=== PATIENT | male | born 1980 | race Hispanic/Latino ===

== ENCOUNTER → 2017-07-12 | Outpatient (CLI) | payer OTHER ==
[2017-07-12 10:18] LABS: ALBUMIN 3.4 GM/DL (3.2-5.2); ANION GAP 7 MEQ/L (8-16); BLOOD UREA NITROGEN 14 MG/DL (7-18); CALCIUM LEVEL 8.5 MG/DL (8.5-10.1); CARBON DIOXIDE LEVEL 28 MEQ/L (21-32); CHLORIDE LEVEL 102 MEQ/L (98-107); CREATININE FOR GFR 0.72 MG/DL (0.70-1.30); GLOMERULAR FILTRATION RATE > 60.0 (>60); GLUCOSE, FASTING 267 MG/DL (70-105); PHOSPHORUS LEVEL 4.4 MG/DL (2.5-4.9); POTASSIUM SERUM 4.7 MEQ/L (3.5-5.1); SODIUM LEVEL 137 MEQ/L (136-145)
== END ==
LOC: M LAB 08:50
PROVIDERS: ATTEND Internal Medicine Cardiovascular Disease
DX: I25.5 Ischemic cardiomyopathy (principal)

== ENCOUNTER 2017-10-01 17:07 | Emergency (ER) | payer OTHER ==
[2017-10-01] MEDS: METHOCARBAMOL 500 MG TAB PO (19:57)
[2017-10-01] MEDS ORDERED: IBUPROFEN 800 MG TAB PO (20:00)
== END 2017-10-01 19:59 | disposition home or self-care (01) ==
LOC: M ED 17:07
DX: S56.911A Strain of unspecified muscles, fascia and tendons at forearm level, right arm, initial encounter (principal); X58.XXXA Exposure to other specified factors, initial encounter; Y92.89 Other specified places as the place of occurrence of the external cause; I25.10 Atherosclerotic heart disease of native coronary artery without angina pectoris; I25.2 Old myocardial infarction; E11.9 Type 2 diabetes mellitus without complications; Z95.1 Presence of aortocoronary bypass graft; Z95.5 Presence of coronary angioplasty implant and graft; Z79.899 Other long term (current) drug therapy; Z79.02 Long term (current) use of antithrombotics/antiplatelets; Z79.82 Long term (current) use of aspirin; Z79.84 Long term (current) use of oral hypoglycemic drugs
CPT/HCPCS: 99282

== ENCOUNTER → 2018-01-26 | Outpatient (REF) | payer OTHER ==
[2018-01-26 12:52] LABS: CREATININE, URINE 56.4 MG/DL; MALB URINE SIEMENS 13.7 MG/L; MAU/CREAT RATIO 24.2 MCG/MG (0.0-30.0)
[2018-01-26 12:55] LABS: ALBUMIN 3.6 GM/DL (3.2-5.2); ALKALINE PHOSPHATASE 97 U/L (45-117); ALT/SGPT 39 U/L (12-78); ANION GAP 6 MEQ/L (8-16); AST/SGOT 13 U/L (7-37); BILIRUBIN,TOTAL 0.4 MG/DL (0.2-1.0); BLOOD UREA NITROGEN 16 MG/DL (7-18); CALCIUM LEVEL 8.7 MG/DL (8.5-10.1); CARBON DIOXIDE LEVEL 29 MEQ/L (21-32); CHLORIDE LEVEL 102 MEQ/L (98-107); CHOLESTEROL LEVEL 109 MG/DL (<200); CHOLESTEROL RISK RATIO 3.303 (<5); CREATININE FOR GFR 0.97 MG/DL (0.70-1.30); GLOMERULAR FILTRATION RATE > 60.0 (>60); GLUCOSE, FASTING 300 MG/DL (70-100); HDL CHOLESTEROL 33 MG/DL (>40); LDL CHOLESTEROL 28.4 MG/DL (<100); NON-HDL-C 76 MG/DL; SODIUM LEVEL 137 MEQ/L (136-145); TOTAL PROTEIN 7.2 GM/DL (6.4-8.2); TRIGLYCERIDES LEVEL 238 MG/DL (<150)
[2018-01-26 12:58] LABS: POTASSIUM SERUM 5.7 MEQ/L (3.5-5.1)
[2018-01-26 13:15] LABS: ESTIMATED AVERAGE GLUCOSE 194 MG/DL (60-110); HEMOGLOBIN A1c 8.4 %
== END ==
LOC: M LAB REF 11:52
DX: E11.42 Type 2 diabetes mellitus with diabetic polyneuropathy (principal)

== ENCOUNTER 2018-09-27 07:30 | Emergency (ER) | payer BC, OTHER, SELFPAY ==
[~2018-09-27] VITALS: Ht 170.2 cm; Wt 70.0 kg
[~2018-09-27 07:30] MED LIST: ASPI81CH PO; ATOR80TA59 PO; CARV3.12 PO; GABA-843 PO; KEFL500C17 PO; METF500T13 PO; NITR0.4S14 SL; PERC5TAB12 PO; PLAV1TAB2 PO; ROBA500T PO; SPIR-10 PO; insulin SQ
[2018-09-27] MEDS ORDERED: BASA100I (07:36)
[2018-09-27] MEDS ORDERED: CLOP75TA2 (07:36)
[2018-09-27] MEDS ORDERED: PRAL1INJ2 (07:36)
[2018-09-27] MEDS ORDERED: ACETAMINOPHEN 325 MG TAB PO ONE (08:00)
--- NOTE | 2018-09-27 08:32 | REP ---
PA and lateral chest: Comparison is the portable chest dated 06/09/2017. There are no infiltrates or pleural effusions. The lung norman otherwise clear and unchanged. Cardiac size is upper normal, unchanged. There are sternotomy wires and mediastinal surgical clips, unchanged. Impression: No acute cardiopulmonary findings. Electronically Signed by Jimmy Ahmadi MD 09/27/2018 08:24 A
[2018-09-27 08:34] LABS: INFLUENZA A AMPLIFICATION POSITIVE (NEGATIVE); INFLUENZA B AMPLIFICATION NEGATIVE (NEGATIVE)
[2018-09-27] MEDS ORDERED: NS 1,000 ML IV ONE (09:45)
[2018-09-27 10:03] LABS: VENOUS HCO3 24.3 MEQ/L (23.0-27.0); VENOUS O2 SATURATION 95.5 % (60.0-80.0); VENOUS PARTIAL PRESSURE CO2 42.6 mmHg (38.0-50.0); VENOUS PH 7.374 UNITS (7.330-7.430); VENOUS STANDARD HCO3 23.6 MEQ/L; VENOUS TOTAL CO2 25.6 MEQ/L (24.0-28.0)
[2018-09-27 10:05] LABS: BASO % 0.4 % (0.0-1.0); EOS % 0.1 % (0.0-3.0); HEMOGLOBIN 14.1 g/dl (13.5-17.5); LYMPH # 0.6 10^3/uL (1.5-4.5); LYMPH % 7.5 % (24.0-44.0); MEAN CORPUSCULAR HEMOGLOBIN 29.6 pg (27.0-33.0); MEAN CORPUSCULAR HGB CONC 34.4 g/dl (32.0-36.5); MONO # 0.6 10^3/uL (0.0-0.8); MONO % 7.4 % (0.0-5.0); NEUTROPHILS # 6.7 10^3/uL (1.8-7.7); NEUTROPHILS % 84.3 % (36.0-66.0); PLATELET COUNT, AUTOMATED 224 10^3/uL (150-450); RED BLOOD COUNT 4.77 10^6/uL (4.30-6.10)
[2018-09-27 10:37] LABS: ACETONE/KETONE 9.54 MG/DL (<2.81); BLOOD UREA NITROGEN 10 MG/DL (7-18); CALCIUM LEVEL 7.8 MG/DL (8.5-10.1); CARBON DIOXIDE LEVEL 23 MEQ/L (21-32); CHLORIDE LEVEL 98 MEQ/L (98-107); CREATININE FOR GFR 0.74 MG/DL (0.70-1.30); GLOMERULAR FILTRATION RATE > 60.0 (>60); GLUCOSE, FASTING 318 MG/DL (70-100); POTASSIUM SERUM 4.3 MEQ/L (3.5-5.1); SODIUM LEVEL 132 MEQ/L (136-145)
[2018-09-27 10:52] VITALS: BP 103/62
[2018-09-27] MEDS ORDERED: HumuLIN R (REGULAR) INSULIN (NovoLIN R) **100U/ML** PER UNIT IV ONE (11:00)
== END 2018-09-27 11:31 | disposition home or self-care (01) ==
LOC: M ED 07:30
DX: J09.X2 Influenza due to identified novel influenza A virus with other respiratory manifestations (principal)

== ENCOUNTER → 2020-03-28 | Emergency (ER) | payer SELFPAY ==
[~2020-03-28] MED LIST changes: -ASPI81CH PO; +ASPI81CH49 PO; +BASA100I; +CLOP75TA2; +PRAL1INJ2
== END | disposition home or self-care (01) ==
LOC: M ED 19:44
DX: Z20.828 Contact with and (suspected) exposure to other viral communicable diseases (principal); E11.9 Type 2 diabetes mellitus without complications; I25.10 Atherosclerotic heart disease of native coronary artery without angina pectoris; I10 Essential (primary) hypertension; E78.5 Hyperlipidemia, unspecified; F17.210 Nicotine dependence, cigarettes, uncomplicated
CPT/HCPCS: 99283; U0002

== ENCOUNTER 2020-09-02 17:16 | Emergency (ER) | payer SELFPAY ==
[~2020-09-02] VITALS: Ht 170.2 cm; Wt 73.9 kg
[~2020-09-02 17:16] MED LIST changes: +GABA-282 PO; -GABA-843 PO
--- OUTSIDE RECORDS SUMMARY | 2020-09-02 17:23 | CCD ---
Author Author [facility] Organization [facility] Address Unknown Phone Unavailable Care Team Providers Care Workers' Compensation Hearings Officer Name Role Phone Octavia Huynh MD Unavailable Unavailable Octavia Huynh MD Unavailable Unavailable Octavia Huynh MD Unavailable Unavailable Octavia Huynh MD Unavailable Unavailable Octavia Huynh MD Unavailable Unavailable Octavai Huynh MD Unavailable Unavailable Octavia Huynh MD Unavailable Unavailable Octavia Huynh MD Unavailable Unavailable Octavia Huynh MD Unavailable Unavailable Octavia Huynh MD Unavailable Unavailable Octavia Huynh MD Unavailable Unavailable Octavia Huynh MD Unavailable Unavailable Octavia Huynh MD Unavailable Unavailable Octavia Huynh MD Unavailable Unavailable Octavia Huynh MD Unavailable Unavailable Octavia Huynh MD Unavailable Unavailable Octavia Huynh MD Unavailable Unavailable Octavia Huynh MD Unavailable Unavailable Octavia Huynh MD Unavailable Unavailable Octavia Huynh MD Unavailable Unavailable Octavia Huynh MD Unavailable Unavailable Octavia Huynh MD Unavailable Unavailable Octavia Huynh MD Unavailable Unavailable Octavia Huynh MD Unavailable Unavailable Octavia Huynh MD Unavailable Unavailable Octavia Huynh MD Unavailable Unavailable Octavia Huynh MD Unavailable Unavailable Octavia Huynh MD Unavailable Unavailable Octavia Huynh MD Unavailable Unavailable Octavia Huynh MD Unavailable Unavailable Octavia Huynh MD Unavailable Unavailable Octavia Huynh MD Unavailable Unavailable Octavia Huynh MD Unavailable Unavailable Octavia Huynh MD Unavailable Unavailable Octavia Huynh MD Unavailable Unavailable Octavia Huynh MD Unavailable Unavailable Octavia Huynh MD Unavailable Unavailable Huynh, Octavia Tilley MD Unavailable Unavailable Huynh, Octavia Tilley MD Unavailable Unavailable Huynh, Octavia Tilley MD Unavailable Unavailable Huynh, Octavia Tilley MD Unavailable Unavailable Huynh, Octavia Tilley MD Unavailable Unavailable Huynh, Octavia Tilley MD Unavailable Unavailable Huynh, Octavia Tilley MD Unavailable Unavailable Huynh, Octavia Tilley MD Unavailable Unavailable Huynh, Octavia Tilley MD Unavailable Unavailable Huynh, Octavia Tilley MD Unavailable Unavailable Huynh, Octavia Tilley MD Unavailable Unavailable Huynh, Octavia Tilley MD Unavailable Unavailable Huynh, Octavia Tilley MD Unavailable Unavailable Huynh, Octavia Tilley MD Unavailable Unavailable Huynh, Octavia Tilley MD Unavailable Unavailable Huynh, Octavia Tilley MD Unavailable Unavailable Huynh, Octavia Tilley MD Unavailable Unavailable Huynh, Octavia Tilley MD Unavailable Unavailable Huynh, Octavia Tilley MD Unavailable Unavailable Huynh, Octavia Tilley MD Unavailable Unavailable Huynh, Octavia Tilley MD Unavailable Unavailable Huynh, Octavia Tilley MD Unavailable Unavailable Huynh, Octavia Tilley MD Unavailable Unavailable Huynh, Octavia Tilley MD Unavailable Unavailable Huynh, Octavia Tilley MD Unavailable Unavailable Huynh, Octavia Tilley MD Unavailable Unavailable Huynh, Octavia Tilley MD Unavailable Unavailable Huynh, Octavia Tilley MD Unavailable Unavailable Huynh, Octavia Tilley MD Unavailable Unavailable Huynh, Octavia Tilley MD Unavailable Unavailable Huynh, Octavia Tilley MD Unavailable Unavailable Huynh, Octavia Tilley MD Unavailable Unavailable Huynh, Octavia Tilley MD Unavailable Unavailable Huynh, Octavia Tilley MD Unavailable Unavailable Huynh, Octavia Tilley MD Unavailable Unavailable Huynh, Octavia Tilley MD Unavailable Unavailable Huynh, Octavia Tilley MD Unavailable Unavailable Huynh, Octavia Tilley MD Unavailable Unavailable Huynh, Octavia Tilley MD Unavailable Unavailable Huynh, Octavia Tilley MD Unavailable Unavailable Huynh, Octavia Tilley MD Unavailable Unavailable Huynh, Octavia Tilley MD Unavailable Unavailable Huynh, Octavia Tilley MD Unavailable Unavailable Huynh, Octavia Tilley MD Unavailable Unavailable Huynh, Octavia Tilley MD Unavailable Unavailable Huynh, Octavia Tilley MD Unavailable Unavailable Huynh, Octavia Tilley MD Unavailable Unavailable Huynh, Octavia Tilley MD Unavailable Unavailable Huynh, Octavia Tilley MD Unavailable Unavailable Huynh, Octavia Tilley MD Unavailable Unavailable Huynh, Octavia Tilley MD Unavailable Unavailable Huynh, Octavia Tilley MD Unavailable Unavailable Re-disclosure Warning The records that you are about to access may contain information from federally-assisted alcohol or drug abuse programs. If such information is present, then the following federally mandated warning applies: This information has been disclosed to you from records protected by federal confidentiality rules (42 CFR part 2). The federal rules prohibit you from making any further disclosure of this information unless further disclosure is expressly permitted by the written consent of the person to whom it pertains or as otherwise permitted by 42 CFR part 2. A general authorization for the release of medical or other information is NOT sufficient for this purpose. The Federal rules restrict any use of the information to criminally investigate or prosecute any alcohol or drug abuse patient.The records that you are about to access may contain highly sensitive health information, the redisclosure of which is protected by Article 27-F of the [facility] Public Health law. If you continue you may have access to information: Regarding HIV / AIDS; Provided by facilities licensed or operated by the [facility] Office of Mental Health; or Provided by the [facility] Office for People With Developmental Disabilities. If such information is present, then the following [facility] mandated warning applies: This information has been disclosed to you from confidential records which are protected by state law. State law prohibits you from making any further disclosure of this information without the specific written consent of the person to whom it pertains, or as otherwise permitted by law. Any unauthorized further disclosure in violation of state law may result in a fine or longterm sentence or both. A general authorization for the release of medical or other information is NOT sufficient authorization for further disc losure. Family History Family Member Name Family Member Gender Family Member Status Date o f Status Description Data Source(s) Unknown Male Problem [facility] ([facility]) Encounters Encounter Providers Location Date Indications Data Source(s ) Outpatient Attender: Jarek Huynh MD 01/23/2020 07:52:48 PM EDT [facility] Family Health Insurance Providers Payer name Policy type / Coverage type Policy ID Covered republican ID Covered republican's relationship to huffman Policy Huffman Plan Information SELF PAY ONLY [id number] SP [id number] Managed Care [place] P [id number] S [id number] Medicaid S [id number] S [id number] [facility] [place] [facility] 306/806 [id number] SP [id number] BCBS [facility] [id number] SP [id number] [facility] [id number] SP [id number] Managed Care [place] P [id number] S [id number] Managed Care - Community Plan United [employer] P UNAVAILABLE S UNAVAILABLE Managed Care - Community Plan United Healthcare P [id number] S [id number] Managed Care - Community Plan United Healthcare P [id number] S [id number] [facility]-Community Plan-[facility] [id number] Self [id number] Managed Care - Community Plan United [employer] P [id number] S [id number] [facility]-Community Plan-[place] Commercial [id number] Self [id number] [facility]-Community Plan-[place] Commercial [id number] Self [id number] [facility] [id number] S [id number] [facility]-Community Plan-[place] Commercial [id number] Self [id number] Medicaid S [id number] S [id number] [facility] MEDICAID [id number] Kim [id number] [facility] MEDICAID PI RANI
--- OUTSIDE RECORDS SUMMARY | 2020-09-02 18:36 | CCD ---
Author Author [facility] Organization [facility] Address Unknown Phone Unavailable Care Team Providers Care Operations Lieutenant Name Role Phone Octavia Huynh MD Unavailable [...] is protected by Article 27-F of the [facility] Public Health law. If you continue you may have access to information: Regarding HIV / AIDS; Provided by facilities licensed or operated by the [facility] Office of Mental Health; or Provided by the [facility] Office for People With Developmental Disabilities. If such information is present, then the following [facility] mandated warning applies: This information has been [...] law may result in a fine or detention sentence or both. A general authorization for [...] Jarek Huynh MD 01/23/2020 07:52:48 PM EDT [facility] Family Health Insurance Providers Payer name Policy type / Coverage type Policy ID Covered republican ID Covered republican's relationship to huffman Policy [place] Plan Information SELF PAY ONLY [id number] SP [id number] Managed Care [place] P [id number] S [id number] Medicaid S [id number] S [id number] [facility] [place] [facility] 306/806 [id number] SP [id number] [facility] [id number] SP [id number] [facility] [id number] SP [id number] Managed Care [place] P [id number] S [id number] Managed Care - Community Plan United [employer] P UNAVAILABLE S UNAVAILABLE Managed Care - Community Plan United [employer] P [id number] S [id number] Managed Care - Community Plan United [employer] P [id number] S [id number] [facility]-Community Plan[facility] [id number] Self [id number] Managed Care - Community Plan United [employer] P [id number] S [id number] [facility]-Community Plan-[place] Commercial [id number] Self [id number] [facility]-Community Plan-[place] Commercial [id number] Self [id number] [facility] [id number] S [id number] [facility]-Community Plan-[place] Commercial [id number] Self [id number] Medicaid S [id number] S [id number] [facility] MEDICAID [id number] Kim [id number] [facility] MEDICAID PI RANI
[2020-09-02] MEDS ORDERED: NS 1,000 ML IV ONE (19:15)
[2020-09-02 19:58] LABS: BASO % 0.3 % (0.0-1.0); EOS # 0.1 10^3/uL (0.0-0.5); EOS % 0.6 % (0.0-3.0); HEMATOCRIT 48.7 % (42.0-52.0); HEMOGLOBIN 16.4 g/dl (13.5-17.5); LYMPH # 3.1 10^3/uL (1.5-5.0); LYMPH % 22.4 % (24.0-44.0); MEAN CORPUSCULAR HEMOGLOBIN 29.8 pg (27.0-33.0); MEAN CORPUSCULAR HGB CONC 33.7 g/dl (32.0-36.5); MEAN CORPUSCULAR VOLUME 88.5 fl (80.0-96.0); MONO # 0.5 10^3/uL (0.0-0.8); MONO % 3.5 % (0.0-5.0); NEUTROPHILS # 9.9 10^3/uL (1.5-8.5); NEUTROPHILS % 72.7 % (36.0-66.0); PLATELET COUNT, AUTOMATED 305 10^3/uL (150-450); VENOUS BASE EXCESS -1.9 (-2.0-2.0); VENOUS HCO3 23.6 MEQ/L (23.0-27.0); VENOUS O2 SATURATION 75.3 % (60.0-80.0); VENOUS PARTIAL PRESSURE CO2 43.1 mmHg (38.0-50.0); VENOUS PARTIAL PRESSURE O2 38.6 mmHg (30.0-50.0); VENOUS PH 7.357 UNITS (7.330-7.430); VENOUS STANDARD HCO3 22.3 MEQ/L; WHITE BLOOD COUNT 13.6 10^3/uL (4.0-10.0)
--- NOTE | 2020-09-02 20:05 | ECGEPIP ---
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
[2020-09-02 20:09] LABS: INR 0.93; PROTHROMBIN TIME 12.7 SECONDS (12.5-14.3)
--- NOTE | 2020-09-02 20:09 | REPVR ---
PROCEDURE INFORMATION: Exam: CT Head Without Contrast Exam date and time: 09/02/2020 7:29 PM Age: 40 years old Clinical indication: Weakness, extremity; Additional info: CVA - nursing interventions must not delay CT TECHNIQUE: Imaging protocol: Computed tomography of the head without contrast. Radiation optimization: All CT scans at this facility use at least one of these dose optimization techniques: automated exposure control; mA and/or kV adjustment per patient size (includes targeted exams where dose is matched to clinical indication); or iterative reconstruction. COMPARISON: No relevant prior studies available. FINDINGS: Brain: No intracranial hemorrhage or extra-axial fluid collection. No evidence of mass effect or midline shift. Nguyen-white matter differentiation is intact. Cerebral ventricles: No ventriculomegaly. Bones/joints: No acute osseus lesion or fracture. Paranasal sinuses: Visualized sinuses are unremarkable. No fluid levels. Mastoid air cells: Unremarkable. Soft tissues: Unremarkable. IMPRESSION: No acute intracranial pathology. ASPECTS score 10. Electronically signed by: Daniele Taylor On 09/02/2020 20:09:36 PM
[2020-09-02 20:10] LABS: PARTIAL THROMBOPLASTIN TIME 25.1 SECONDS (24.2-38.5)
[2020-09-02 20:14] LABS: OSMOLALITY SERUM 290 MOSM/KG (275-295)
[2020-09-02 20:29] LABS: ACETONE/KETONE 20.35 MG/DL (<2.81); BLOOD UREA NITROGEN 13 MG/DL (7-18); CALCIUM LEVEL 9.4 MG/DL (8.5-10.1); CARBON DIOXIDE LEVEL 25 MEQ/L (21-32); CHLORIDE LEVEL 101 MEQ/L (98-107); CK-MB VALUE MASS 2.5 NG/ML (<3.6); CPK CREATINE PHOSPHOKINASE 158 U/L (39-308); CREATININE FOR GFR 0.73 MG/DL (0.70-1.30); GLOMERULAR FILTRATION RATE > 60.0 (>60); GLUCOSE, FASTING 212 MG/DL (70-100); MB/CK RELATIVE INDEX 1.58 (< OR =4); POTASSIUM SERUM 4.5 MEQ/L (3.5-5.1); SODIUM LEVEL 136 MEQ/L (136-145); TROPONIN I < 0.02 NG/ML (< 0.10)
--- NOTE | 2020-09-02 20:54 | REPVR ---
PROCEDURE INFORMATION: Exam: XR Chest, 1 View Exam date and time: 09/02/2020 8:15 PM Age: 40 years old Clinical indication: Other: CVA TECHNIQUE: Imaging protocol: XR of the chest Views: 1 view. COMPARISON: CR PORTABLE CHEST X-RAY 06/09/2017 11:52 AM FINDINGS: Lungs: Lungs are diffusely hypoexpanded. No evidence of pulmonary edema. No focal consolidation or parenchymal lung mass. Pleural space: No pleural effusion. No pneumothorax. Heart/Mediastinum: Heart and mediastinal contours are normal, given the degree of inflation. Bones/joints: Median sternotomy and coronary bypass changes are present. Osseous structures show no concerning abnormality. Soft tissues: No asymmetry of the extrathoracic soft tissues. IMPRESSION: Hypoexpanded lungs, without evidence of active cardiopulmonary disease Electronically signed by: Doc Zavala On 09/02/2020 20:54:17 PM
[2020-09-02] MEDS ORDERED: KETOROLAC 30 MG/ML 1ML VIAL IV ONE (21:30)
[2020-09-02 23:18] VITALS: BP 150/89
== END 2020-09-03 | disposition left against medical advice (07) ==
LOC: M ED 17:16
DX: R13.10 Dysphagia, unspecified (principal); E11.9 Type 2 diabetes mellitus without complications; Z79.4 Long term (current) use of insulin; I11.9 Hypertensive heart disease without heart failure; E78.5 Hyperlipidemia, unspecified
CPT/HCPCS: 70450; 71045; 80048; 81001; 82010; 82550; 82553; 82803; 83930; 84484; 85025; 85610; 85730; 87880; 93005; 93041; 96361; 96374; 99285; J1885

== ENCOUNTER 2021-02-15 17:49 | Emergency (ER) | payer OTHER, SELFPAY ==
[~2021-02-15] VITALS: Ht 170.2 cm; Wt 77.3 kg
[~2021-02-15 17:49] MED LIST changes: +ALIR150P; -PRAL1INJ2
[2021-02-15 18:01] VITALS: BP 152/76
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
[2021-02-15] MEDS ORDERED: AUGMENTIN 875 MG TAB PO ONE (21:25)
[2021-02-15] MEDS ORDERED: BOOSTRIX/ADACEL VACCINE (DIPHTH/PERTUSS/ACELL/TETANUS) 0.5ML SYR IM ONE (21:45)
[2021-02-15 21:59] LABS: RSV AMPLIFICATION NEGATIVE (NEGATIVE)
== END 2021-02-15 22:50 | disposition left against medical advice (07) ==
LOC: M ED 17:49
DX: S01.511A Laceration without foreign body of lip, initial encounter (principal); Y04.8XXA Assault by other bodily force, initial encounter; Y07.9 Unspecified perpetrator of maltreatment and neglect; Z79.82 Long term (current) use of aspirin

== ENCOUNTER 2021-04-22 03:53 | Emergency (ER) | payer OTHER, SELFPAY ==
[~2021-04-22] VITALS: Ht 170.2 cm; Wt 72.1 kg
[2021-04-22] MEDS ORDERED: NITROGLYCERIN 0.4 MG SUBL TABLET SL PRN (04:25)
[2021-04-22] MEDS ORDERED: ASPIRIN 81 MG CHEW TABLET PO ONE (04:25)
[2021-04-22 04:39] LABS: BASO # 0.1 10^3/uL (0.0-0.2); BASO % 0.4 % (0.0-1.0); EOS # 0.1 10^3/uL (0.0-0.5); EOS % 0.7 % (0.0-3.0); HEMATOCRIT 38.1 % (42.0-52.0); HEMOGLOBIN 13.2 g/dl (13.5-17.5); LYMPH # 1.8 10^3/uL (1.5-5.0); MEAN CORPUSCULAR HEMOGLOBIN 31.2 pg (27.0-33.0); MEAN CORPUSCULAR HGB CONC 34.6 g/dl (32.0-36.5); MEAN CORPUSCULAR VOLUME 90.1 fl (80.0-96.0); MONO # 0.6 10^3/uL (0.0-0.8); MONO % 4.9 % (2.0-8.0); NEUTROPHILS # 10.2 10^3/uL (1.5-8.5); NEUTROPHILS % 79.4 % (36.0-66.0); PLATELET COUNT, AUTOMATED 331 10^3/uL (150-450); RED BLOOD COUNT 4.23 10^6/uL (4.30-6.10); WHITE BLOOD COUNT 12.9 10^3/uL (4.0-10.0)
[2021-04-22] MEDS ORDERED: NITROGLYCERIN 2% OINT 1 GM *U/D* PKT TOP ONE ×2 (04:45→05:25)
[2021-04-22 04:49] LABS: PROTHROMBIN TIME 13.6 SECONDS (12.7-14.5)
[2021-04-22 04:50] LABS: PARTIAL THROMBOPLASTIN TIME 28.4 SECONDS (25.9-37.0)
[2021-04-22] MEDS: MORPHINE 2 MG/ML 1ML VIAL (J2270) IV PRN ×2 (04:50→05:24)
[2021-04-22 05:07] LABS: ERYTHROCYTE SEDIMENTATION RATE 50 mm/hr (0-15)
[2021-04-22 05:13] LABS: RSV AMPLIFICATION NEGATIVE (NEGATIVE)
[2021-04-22 05:14] LABS: ALBUMIN 2.9 GM/DL (3.2-5.2); ALT/SGPT 20 U/L (12-78); BILIRUBIN,DIRECT < 0.1 MG/DL (0.0-0.2); BILIRUBIN,TOTAL 0.4 MG/DL (0.2-1.0); BLOOD UREA NITROGEN 13 MG/DL (7-18); C REACTIVE PROTEIN QUANTITATIV 2.61 MG/DL (0.00-0.30); CALCIUM LEVEL 8.6 MG/DL (8.5-10.1); CARBON DIOXIDE LEVEL 23 MEQ/L (21-32); CHLORIDE LEVEL 102 MEQ/L (98-107); CK-MB VALUE MASS 2.3 NG/ML (<3.6); CPK CREATINE PHOSPHOKINASE 135 U/L (39-308); CREATININE FOR GFR 0.68 MG/DL (0.70-1.30); GLOMERULAR FILTRATION RATE > 60.0 (>60); GLUCOSE, FASTING 378 MG/DL (70-100); LIPASE 154 U/L (73-393); NT-PRO BNP 1069 PG/ML (<125); POTASSIUM SERUM 4.6 MEQ/L (3.5-5.1); SODIUM LEVEL 135 MEQ/L (136-145); TOTAL PROTEIN 6.3 GM/DL (6.4-8.2); TROPONIN I 0.57 NG/ML (< 0.10)
[2021-04-22] MEDS ORDERED: HEPARIN SOD (PORCINE) 5000UNITS/ML 1ML VIAL/SYRINGE IV ONE (05:15)
[2021-04-22] MEDS ORDERED: HEPARIN DRIP 25,000 UNITS in IV 1 EA IV SCH (05:15)
[2021-04-22 05:26] VITALS: BP 123/79
[2021-04-22] MEDS ORDERED: FUROSEMIDE 40MG/4ML VIAL (J1940) IV ONE (05:35)
[2021-04-22 07:15] VITALS: BP 125/76
--- NOTE | 2021-04-22 08:12 | REP ---
INDICATION: CHEST PAIN. COMPARISON: Comparison chest x-ray September 02, 2020. TECHNIQUE: Portable upright AP chest radiograph. FINDINGS: Patient is status post prior median sternotomy. EKG electrodes are seen. The heart is mildly enlarged. There is a diffuse acute interstitial edema pattern. Pulmonary vascular congestion is seen. IMPRESSION: CHF pattern with acute diffuse interstitial pulmonary edema and vascular congestion. <Electronically signed by Dillan Hernandez > 04/22/21 0809
--- NOTE | 2021-04-22 17:54 | ECGEPIP ---
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
== END 2021-04-22 07:21 | disposition short-term general hospital (02) ==
LOC: M ED 03:53
DX: I21.4 Non-ST elevation (NSTEMI) myocardial infarction (principal); F17.200 Nicotine dependence, unspecified, uncomplicated; Z95.1 Presence of aortocoronary bypass graft; Z95.5 Presence of coronary angioplasty implant and graft
CPT/HCPCS: 71045; 80048; 80076; 82550; 82553; 83690; 83880; 84443; 84484; 85025; 85610; 85652; 85730; 86140; 87631; 93005; 93041; 94760; 96365; 96366; 96375; 96376; 99285; J1644; J1940; J2270

== ENCOUNTER 2021-04-27 08:12 | Emergency (ER) | payer SELFPAY ==
[~2021-04-27] VITALS: Ht 170.2 cm; Wt 70.5 kg
[2021-04-27] MEDS ORDERED: ATOR40TA75 (08:27)
[2021-04-27] MEDS ORDERED: METO1TAB32 (08:27)
[2021-04-27] MEDS ORDERED: CLOP75TA2 (08:27)
[2021-04-27] MEDS ORDERED: NITROGLYCERIN 0.4 MG SUBL TABLET SL PRN (08:40)
[2021-04-27 08:49] LABS: BASO # 0.1 10^3/uL (0.0-0.2); BASO % 0.8 % (0.0-1.0); EOS # 0.2 10^3/uL (0.0-0.5); EOS % 1.6 % (0.0-3.0); HEMOGLOBIN 13.5 g/dl (13.5-17.5); LYMPH # 1.8 10^3/uL (1.5-5.0); LYMPH % 19.7 % (24.0-44.0); MEAN CORPUSCULAR HEMOGLOBIN 30.8 pg (27.0-33.0); MEAN CORPUSCULAR HGB CONC 32.9 g/dl (32.0-36.5); MEAN CORPUSCULAR VOLUME 93.4 fl (80.0-96.0); MONO # 0.8 10^3/uL (0.0-0.8); MONO % 8.2 % (2.0-8.0); NEUTROPHILS # 6.4 10^3/uL (1.5-8.5); NEUTROPHILS % 69.5 % (36.0-66.0); PLATELET COUNT, AUTOMATED 350 10^3/uL (150-450); RED BLOOD COUNT 4.39 10^6/uL (4.30-6.10); WHITE BLOOD COUNT 9.2 10^3/uL (4.0-10.0)
--- NOTE | 2021-04-27 08:58 | REP ---
INDICATION: CHEST PAIN. COMPARISON: 04/22/2021. TECHNIQUE: Single portable AP view of the chest was performed. FINDINGS: There is cardiomegaly again noted. The mediastinal silhouette is unchanged. There is vascular congestion and diffuse interstitial edema. This has improved since the prior study. Multiple sternal wires and mediastinal clips are present. IMPRESSION: Findings compatible with CHF, improved since the prior exam of 04/22/2021. <Electronically signed by Jimmy Nguyen > 04/27/21 0833
[2021-04-27 09:20] LABS: ALBUMIN 2.9 GM/DL (3.2-5.2); ALT/SGPT 26 U/L (12-78); BILIRUBIN,DIRECT 0.1 MG/DL (0.0-0.2); BILIRUBIN,TOTAL 0.4 MG/DL (0.2-1.0); BLOOD UREA NITROGEN 19 MG/DL (7-18); CALCIUM LEVEL 8.8 MG/DL (8.5-10.1); CARBON DIOXIDE LEVEL 26 MEQ/L (21-32); CHLORIDE LEVEL 104 MEQ/L (98-107); CK-MB VALUE MASS 1.6 NG/ML (<3.6); CPK CREATINE PHOSPHOKINASE 107 U/L (39-308); CREATININE FOR GFR 0.75 MG/DL (0.70-1.30); FREE T4 1.15 NG/DL (0.76-1.46); GLOMERULAR FILTRATION RATE > 60.0 (>60); GLUCOSE, FASTING 225 MG/DL (70-100); LIPASE 101 U/L (73-393); NT-PRO BNP 1444 PG/ML (<125); POTASSIUM SERUM 4.6 MEQ/L (3.5-5.1); SODIUM LEVEL 136 MEQ/L (136-145); TROPONIN I 0.09 NG/ML (< 0.10)
[2021-04-27 09:55] VITALS: BP 115/66
[2021-04-27] MEDS ORDERED: NOVO70VL SC (14:48)
[2021-04-27] MEDS ORDERED: LASI20TA3 PO (15:52)
--- NOTE | 2021-04-27 20:09 | ECGEPIP ---
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
== END 2021-04-27 10:05 | disposition left against medical advice (07) ==
LOC: M ED 08:12
DX: I11.0 Hypertensive heart disease with heart failure (principal); I50.9 Heart failure, unspecified; E78.5 Hyperlipidemia, unspecified; E11.9 Type 2 diabetes mellitus without complications; R07.9 Chest pain, unspecified; Z95.5 Presence of coronary angioplasty implant and graft

== ENCOUNTER 2021-04-27 14:32 | Emergency (ER) | payer SELFPAY ==
[~2021-04-27] VITALS: Ht 170.2 cm; Wt 71.7 kg
[~2021-04-27 14:32] MED LIST changes: +ATOR40TA75; +METO1TAB32
[2021-04-27] MEDS ORDERED: NOVO70VL SC (14:48)
[2021-04-27] MEDS ORDERED: FUROSEMIDE 40MG/4ML VIAL (J1940) IV ONE (15:00)
[2021-04-27] MEDS ORDERED: ASPIRIN 81 MG CHEW TABLET PO ONE (15:00)
[2021-04-27 15:15] LABS: BASO # 0.1 10^3/uL (0.0-0.2); BASO % 0.5 % (0.0-1.0); EOS # 0.1 10^3/uL (0.0-0.5); EOS % 1.4 % (0.0-3.0); HEMATOCRIT 38.3 % (42.0-52.0); LYMPH # 2.2 10^3/uL (1.5-5.0); LYMPH % 23.9 % (24.0-44.0); MEAN CORPUSCULAR HEMOGLOBIN 31.3 pg (27.0-33.0); MEAN CORPUSCULAR HGB CONC 33.9 g/dl (32.0-36.5); MEAN CORPUSCULAR VOLUME 92.3 fl (80.0-96.0); MONO # 0.7 10^3/uL (0.0-0.8); MONO % 7.5 % (2.0-8.0); NEUTROPHILS # 6.2 10^3/uL (1.5-8.5); NEUTROPHILS % 66.3 % (36.0-66.0); PLATELET COUNT, AUTOMATED 353 10^3/uL (150-450); RED BLOOD COUNT 4.15 10^6/uL (4.30-6.10); WHITE BLOOD COUNT 9.3 10^3/uL (4.0-10.0)
[2021-04-27 15:37] LABS: BLOOD UREA NITROGEN 18 MG/DL (7-18); CALCIUM LEVEL 8.5 MG/DL (8.5-10.1); CARBON DIOXIDE LEVEL 25 MEQ/L (21-32); CHLORIDE LEVEL 102 MEQ/L (98-107); CK-MB VALUE MASS 2.3 NG/ML (<3.6); CPK CREATINE PHOSPHOKINASE 115 U/L (39-308); CREATININE FOR GFR 0.82 MG/DL (0.70-1.30); GLOMERULAR FILTRATION RATE > 60.0 (>60); GLUCOSE, FASTING 240 MG/DL (70-100); NT-PRO BNP 1440 PG/ML (<125); POTASSIUM SERUM 4.8 MEQ/L (3.5-5.1); SODIUM LEVEL 136 MEQ/L (136-145); TROPONIN I 0.07 NG/ML (< 0.10)
[2021-04-27 15:45] VITALS: BP 120/81
[2021-04-27] MEDS ORDERED: LASI20TA3 PO (15:52)
--- NOTE | 2021-04-27 20:16 | ECGEPIP ---
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
== END 2021-04-27 16:11 | disposition home or self-care (01) ==
LOC: M ED 14:32
DX: I50.1 Left ventricular failure, unspecified (principal); I25.10 Atherosclerotic heart disease of native coronary artery without angina pectoris; I25.2 Old myocardial infarction; E11.9 Type 2 diabetes mellitus without complications; I11.0 Hypertensive heart disease with heart failure; E78.5 Hyperlipidemia, unspecified; Z79.82 Long term (current) use of aspirin; Z79.899 Other long term (current) drug therapy
CPT/HCPCS: 80048; 82550; 82553; 83880; 84484; 85025; 93005; 93041; 96374; 99284; J1940

== ENCOUNTER → 2021-05-15 | Outpatient (CLI) | payer SELFPAY ==
[~2021-05-15] MED LIST changes: +LASI20TA3 PO; +NOVO70VL SC
[2021-05-15 12:50] LABS: BLOOD UREA NITROGEN 25 MG/DL (7-18); CALCIUM LEVEL 9.8 MG/DL (8.5-10.1); CARBON DIOXIDE LEVEL 31 MEQ/L (21-32); CHLORIDE LEVEL 95 MEQ/L (98-107); CREATININE FOR GFR 1.03 MG/DL (0.70-1.30); GLOMERULAR FILTRATION RATE > 60.0 (>60); GLUCOSE, FASTING 487 MG/DL (70-100); NT-PRO BNP 800 PG/ML (<125); SODIUM LEVEL 129 MEQ/L (136-145)
== END ==
LOC: M PLALAB 08:46
PROVIDERS: ATTEND Nurse Practitioner Family
DX: I11.0 Hypertensive heart disease with heart failure (principal); I50.32 Chronic diastolic (congestive) heart failure

== ENCOUNTER → 2021-06-12 | Outpatient (CLI) | payer SELFPAY ==
[2021-06-12 13:41] LABS: BASO # 0.1 10^3/uL (0.0-0.2); BASO % 0.7 % (0.0-1.0); EOS # 0.1 10^3/uL (0.0-0.5); EOS % 1.3 % (0.0-3.0); HEMATOCRIT 48.4 % (42.0-52.0); HEMOGLOBIN 16.4 g/dl (13.5-17.5); LYMPH # 2.2 10^3/uL (1.5-5.0); LYMPH % 22.3 % (24.0-44.0); MEAN CORPUSCULAR HGB CONC 33.9 g/dl (32.0-36.5); MEAN CORPUSCULAR VOLUME 88.5 fl (80.0-96.0); MONO # 0.6 10^3/uL (0.0-0.8); MONO % 5.6 % (2.0-8.0); NEUTROPHILS # 6.8 10^3/uL (1.5-8.5); NEUTROPHILS % 69.6 % (36.0-66.0); PLATELET COUNT, AUTOMATED 339 10^3/uL (150-450); RED BLOOD COUNT 5.47 10^6/uL (4.30-6.10); WHITE BLOOD COUNT 9.7 10^3/uL (4.0-10.0)
[2021-06-12 14:10] LABS: ALBUMIN 4.2 GM/DL (3.2-5.2); ALT/SGPT 33 U/L (12-78); BILIRUBIN,TOTAL 0.3 MG/DL (0.2-1.0); BLOOD UREA NITROGEN 26 MG/DL (7-18); CARBON DIOXIDE LEVEL 29 MEQ/L (21-32); CHLORIDE LEVEL 96 MEQ/L (98-107); CHOLESTEROL LEVEL 264 MG/DL (<200); CHOLESTEROL RISK RATIO 5.387 (<5); CPK CREATINE PHOSPHOKINASE 110 U/L (39-308); CREATININE FOR GFR 1.17 MG/DL (0.70-1.30); GLOMERULAR FILTRATION RATE > 60.0 (>60); GLUCOSE, FASTING 546 MG/DL (70-100); HDL CHOLESTEROL 49 MG/DL (>40); LDL CHOLESTEROL 175 MG/DL (<100); NON-HDL-C 215 MG/DL; POTASSIUM SERUM 5.3 MEQ/L (3.5-5.1); SODIUM LEVEL 131 MEQ/L (136-145); TOTAL PROTEIN 8.3 GM/DL (6.4-8.2); TRIGLYCERIDES LEVEL 198 MG/DL (<150)
[2021-06-12 14:11] LABS: HEMOGLOBIN A1c 12.3 %
== END ==
LOC: M PLALAB 09:47
PROVIDERS: ATTEND Physician Assistant Medical
DX: E11.59 Type 2 diabetes mellitus with other circulatory complications (principal); E78.2 Mixed hyperlipidemia; I25.2 Old myocardial infarction

== ENCOUNTER 2021-10-10 17:25 | Emergency (ER) | payer OTHER, SELFPAY ==
[~2021-10-10] VITALS: Ht 167.6 cm; Wt 75.0 kg
[~2021-10-10 17:25] MED LIST changes: +CLOP75TA2 PO; -METO1TAB32; +METO1TAB32 PO
[2021-10-10 17:55] LABS: BASO # 0.1 10^3/uL (0.0-0.2); BASO % 0.3 % (0.0-1.0); EOS # 0.1 10^3/uL (0.0-0.5); EOS % 0.4 % (0.0-3.0); HEMATOCRIT 44.5 % (42.0-52.0); HEMOGLOBIN 15.7 g/dl (13.5-17.5); LYMPH % 4.6 % (24.0-44.0); MEAN CORPUSCULAR HGB CONC 35.3 g/dl (32.0-36.5); MEAN CORPUSCULAR VOLUME 85.1 fl (80.0-96.0); MONO % 4.4 % (2.0-8.0); NEUTROPHILS % 89.7 % (36.0-66.0); PLATELET COUNT, AUTOMATED 317 10^3/uL (150-450); RED BLOOD COUNT 5.23 10^6/uL (4.30-6.10); WHITE BLOOD COUNT 22.3 10^3/uL (4.0-10.0)
[2021-10-10 18:06] LABS: INR 0.89; PROTHROMBIN TIME 12.4 SECONDS (12.7-14.5)
[2021-10-10] MEDS ORDERED: ONDANSETRON 4MG/2ML VIAL IV ONE (18:25)
[2021-10-10 18:30] LABS: CK-MB VALUE MASS 2.5 NG/ML (<3.6); MB/CK RELATIVE INDEX 1.28 (< OR =4)
[2021-10-10] MEDS: MORPHINE 4 MG/ML 1ML VIAL/SYRINGE (J2270) IV PRN ×2 (18:33→19:12)
[2021-10-10 18:35] LABS: ALBUMIN 3.8 GM/DL (3.2-5.2); ALT/SGPT 26 U/L (12-78); BILIRUBIN,DIRECT 0.1 MG/DL (0.0-0.2); BILIRUBIN,TOTAL 0.5 MG/DL (0.2-1.0); BLOOD UREA NITROGEN 22 MG/DL (7-18); CALCIUM LEVEL 9.2 MG/DL (8.5-10.1); CARBON DIOXIDE LEVEL 20 MEQ/L (21-32); CHLORIDE LEVEL 97 MEQ/L (98-107); CREATININE FOR GFR 0.86 MG/DL (0.70-1.30); GLOMERULAR FILTRATION RATE > 60.0 (>60); GLUCOSE, FASTING 458 MG/DL (70-100); LIPASE 175 U/L (73-393); NT-PRO BNP 208 PG/ML (<125); POTASSIUM SERUM 4.9 MEQ/L (3.5-5.1); SODIUM LEVEL 133 MEQ/L (136-145); THYROID STIMULATING HORMONE 0.572 uIU/ML (0.358-3.740); TOTAL PROTEIN 7.8 GM/DL (6.4-8.2)
[2021-10-10] MEDS ORDERED: NS 1,000 ML IV ONE (18:40)
[2021-10-10] MEDS ORDERED: HumuLIN R (REGULAR) INSULIN (NovoLIN R) **100U/ML** PER UNIT IV ONE (18:40)
[2021-10-10] MEDS ORDERED: ISOVUE-370 76% 100ML VIAL As Ordered ONE ×2 (18:41→19:18)
[2021-10-10 19:31] LABS: HEMOGLOBIN A1c 12.7 %
[2021-10-10 19:34] LABS: CK-MB VALUE MASS 2.2 NG/ML (<3.6); MB/CK RELATIVE INDEX 1.44 (< OR =4)
[2021-10-10] MEDS ORDERED: GI COCKTAIL 50ML BTL(HYOSCYAMINE/MAALOX/LIDOCAINE VISCOUS)(1:3:1) PO ONE (20:05)
[2021-10-10] MEDS ORDERED: MORPHINE 4 MG/ML 1ML VIAL/SYRINGE (J2270) IV ONE (20:45)
[2021-10-10] MEDS ORDERED: PERC5TAB12 PO (22:12)
[2021-10-10] MEDS ORDERED: OXYCODONE/APAP 5MG/325MG(BULK FOR ED) 1 TABLET PO ONE (22:25)
[2021-10-10 23:00] VITALS: BP 121/70
== END 2021-10-10 23:08 | disposition home or self-care (01) ==
LOC: EDBD 17:25 → EDSEX 17:25 → M ED 17:25
DX: R07.9 Chest pain, unspecified (principal); M54.50 Low back pain, unspecified; R94.31 Abnormal electrocardiogram [ECG] [EKG]; E11.9 Type 2 diabetes mellitus without complications; I10 Essential (primary) hypertension; I51.9 Heart disease, unspecified; E78.5 Hyperlipidemia, unspecified; I25.2 Old myocardial infarction; Z79.4 Long term (current) use of insulin; Z87.891 Personal history of nicotine dependence; Z95.5 Presence of coronary angioplasty implant and graft; Z79.899 Other long term (current) drug therapy
CPT/HCPCS: 71045; 71275; 74176; 80048; 80076; 82550; 82553; 83036; 83605; 83690; 83880; 84443; 84484; 85025; 85610; 87040; 93005; 93041; 94760; 96361; 96374; 96375; 99285; J2270; J2405; Q9967

== ENCOUNTER 2021-10-11 23:04 | Inpatient (IN) | payer OTHER ==
[~2021-10-11] VITALS: Ht 170.2 cm; Wt 75.9 kg
[2021-10-11] MEDS ORDERED: GI COCKTAIL 50ML BTL(HYOSCYAMINE/MAALOX/LIDOCAINE VISCOUS)(1:3:1) PO ONE (23:35)
[2021-10-12] VITALS (16 sets, daily range): BP systolic 88–135; BP diastolic 49–74
[2021-10-12 00:14] LABS: INR 1.01; PROTHROMBIN TIME 13.7 SECONDS (12.7-14.5)
[2021-10-12 00:15] LABS: PARTIAL THROMBOPLASTIN TIME 23.5 SECONDS (25.9-37.0)
[2021-10-12 00:20] LABS: BASO % 0.2 % (0.0-1.0); HEMATOCRIT 40.9 % (42.0-52.0); HEMOGLOBIN 13.8 g/dl (13.5-17.5); LYMPH # 0.8 10^3/uL (1.5-5.0); LYMPH % 4.7 % (24.0-44.0); MEAN CORPUSCULAR HEMOGLOBIN 30.3 pg (27.0-33.0); MEAN CORPUSCULAR HGB CONC 33.7 g/dl (32.0-36.5); MEAN CORPUSCULAR VOLUME 89.9 fl (80.0-96.0); MONO # 0.5 10^3/uL (0.0-0.8); MONO % 2.9 % (2.0-8.0); NEUTROPHILS # 15.9 10^3/uL (1.5-8.5); NEUTROPHILS % 91.3 % (36.0-66.0); PLATELET COUNT, AUTOMATED 308 10^3/uL (150-450); RED BLOOD COUNT 4.55 10^6/uL (4.30-6.10); WHITE BLOOD COUNT 17.4 10^3/uL (4.0-10.0)
[2021-10-12 00:35] LABS: CK-MB VALUE MASS 2.8 NG/ML (<3.6); MB/CK RELATIVE INDEX 2.8 (< OR =4)
[2021-10-12 00:59] LABS: ALBUMIN 3.2 GM/DL (3.2-5.2); ALT/SGPT 24 U/L (12-78); BILIRUBIN,DIRECT < 0.1 MG/DL (0.0-0.2); BILIRUBIN,TOTAL 0.3 MG/DL (0.2-1.0); BLOOD UREA NITROGEN 40 MG/DL (7-18); CARBON DIOXIDE LEVEL 14 MEQ/L (21-32); CHLORIDE LEVEL 101 MEQ/L (98-107); CREATININE FOR GFR 1.12 MG/DL (0.70-1.30); GLOMERULAR FILTRATION RATE > 60.0 (>60); GLUCOSE, FASTING 453 MG/DL (70-100); LIPASE 63 U/L (73-393); NT-PRO BNP 435 PG/ML (<125); POTASSIUM SERUM 4.3 MEQ/L (3.5-5.1); SODIUM LEVEL 135 MEQ/L (136-145); THYROID STIMULATING HORMONE 0.112 uIU/ML (0.358-3.740); TOTAL PROTEIN 6.7 GM/DL (6.4-8.2)
[2021-10-12 01:10] LABS: APPEARANCE, URINE MANUAL CLEAR (CLEAR); COLOR, URINE MANUAL YELLOW (YELLOW)
[2021-10-12 01:11] LABS: GLUCOSE, URINE (UA) MANUAL 4+(1000 MG/DL) mg/dL (NEGATIVE); KETONE, URINE MANUAL 3+ mg/dL (NEGATIVE)
[2021-10-12 01:12] LABS: BILIRUBIN, URINE MANUAL NEGATIVE (NEGATIVE); BLOOD URINE MANUAL NEGATIVE (NEGATIVE); LEUKOCYTE ESTERASE, URINE MAN NEGATIVE (NEGATIVE); NITRITE, URINE MANUAL NEGATIVE (NEGATIVE); PROTEIN, URINE MANUAL NEGATIVE (NEGATIVE); SPECIFIC GRAVITY,URINE MANUAL 1.025 (1.002-1.035); UROBILINOGEN, URINE MANUAL NORMAL (NORMAL)
[2021-10-12] MEDS ORDERED: HumuLIN R (REGULAR) INSULIN (NovoLIN R) **100U/ML** PER UNIT IV STA (01:18)
[2021-10-12] MEDS ORDERED: GI COCKTAIL 50ML BTL(HYOSCYAMINE/MAALOX/LIDOCAINE VISCOUS)(1:3:1) PO ONE (02:00)
[2021-10-12 02:52] LABS: CK-MB VALUE MASS 2.7 NG/ML (<3.6); MB/CK RELATIVE INDEX 3.1 (< OR =4)
[2021-10-12] MEDS ORDERED: NS 1,000 ML IV ONE ×3 (03:25→10:00)
[2021-10-12] MEDS ORDERED: FURO40TA2 PO (06:29)
[2021-10-12] MEDS ORDERED: GABA-282 PO (06:29)
[2021-10-12] MEDS ORDERED: HOME MED LIST COMPLETE! XX SCH (06:30)
[2021-10-12 08:38] LABS: ABG BASE EXCESS -15.5 (-2.0-2.0); ABG HCO3 9.7 MEQ/L (22.0-26.0); ABG O2 SATURATION 98.1 % (95.0-99.0); ABG PARTIAL PRESSURE CO2 22.3 mmHg (35.0-45.0); ABG PARTIAL PRESSURE O2 117.6 mmHg (75.0-100.0); ABG STANDARD HCO3 12.7 MEQ/L (22.0-26.0); ABG TOTAL CO2 10.4 MEQ/L (22.0-29.0); ABG pH (ARTERIAL) 7.257 UNITS (7.350-7.450)
[2021-10-12] MEDS ORDERED: PANTOPRAZOLE 40MG VIAL (C9113 PER 1) IV SCH (09:00)
[2021-10-12] MEDS ORDERED: NS 1,000 ML IV SCH (09:10)
[2021-10-12] MEDS ORDERED: INSULIN REGULAR IN 0.9 % NACL 100 UNIT in IV 1 EA IV SCH ×4 (09:10→13:20)
[2021-10-12] MEDS ORDERED: ONDANSETRON 4MG/2ML VIAL IV PRN (09:20)
[2021-10-12 09:43] LABS: BASO % 0.2 % (0.0-1.0); HEMATOCRIT 39.3 % (42.0-52.0); HEMOGLOBIN 13.2 g/dl (13.5-17.5); LYMPH # 1.1 10^3/uL (1.5-5.0); LYMPH % 6.1 % (24.0-44.0); MEAN CORPUSCULAR HEMOGLOBIN 30.1 pg (27.0-33.0); MEAN CORPUSCULAR HGB CONC 33.6 g/dl (32.0-36.5); MEAN CORPUSCULAR VOLUME 89.7 fl (80.0-96.0); MONO # 0.8 10^3/uL (0.0-0.8); MONO % 4.5 % (2.0-8.0); NEUTROPHILS # 15.9 10^3/uL (1.5-8.5); NEUTROPHILS % 88.3 % (36.0-66.0); PLATELET COUNT, AUTOMATED 305 10^3/uL (150-450); RED BLOOD COUNT 4.38 10^6/uL (4.30-6.10)
[2021-10-12] MEDS: CLOPIDOGREL 75 MG TAB PO SCH (09:59)
[2021-10-12 10:19] LABS: BLOOD UREA NITROGEN 40 MG/DL (7-18); CALCIUM LEVEL 7.8 MG/DL (8.5-10.1); CARBON DIOXIDE LEVEL 14 MEQ/L (21-32); CHLORIDE LEVEL 105 MEQ/L (98-107); CREATININE FOR GFR 1.04 MG/DL (0.70-1.30); GLOMERULAR FILTRATION RATE > 60.0 (>60); GLUCOSE, FASTING 352 MG/DL (70-100); POTASSIUM SERUM 5.5 MEQ/L (3.5-5.1); SODIUM LEVEL 136 MEQ/L (136-145)
[2021-10-12 10:37] LABS: ACETONE/KETONE > 46.00 MG/DL (<2.81)
[2021-10-12] MEDS: INSULIN IV RATE CHANGE DOCUMENTATION ML/HR XX SCH ×7 (10:58→21:16)
[2021-10-12] MEDS: MORPHINE 4 MG/ML 1ML VIAL/SYRINGE (J2270) IV PRN ×3 (11:22→20:12)
[2021-10-12] MEDS: KETOROLAC 30 MG/ML 1ML VIAL IV PRN ×2 (12:18→18:01)
[2021-10-12] MEDS: D5W/0.9% SODIUM CHLORIDE 1,000 ML IV SCH ×2 (13:53→21:11)
[2021-10-12 14:52] LABS: BLOOD UREA NITROGEN 28 MG/DL (7-18); CALCIUM LEVEL 7.2 MG/DL (8.5-10.1); CARBON DIOXIDE LEVEL 17 MEQ/L (21-32); CHLORIDE LEVEL 113 MEQ/L (98-107); CREATININE FOR GFR 0.87 MG/DL (0.70-1.30); GLOMERULAR FILTRATION RATE > 60.0 (>60); GLUCOSE, FASTING 182 MG/DL (70-100); POTASSIUM SERUM 4.4 MEQ/L (3.5-5.1); SODIUM LEVEL 140 MEQ/L (136-145)
[2021-10-12] MEDS: METOCLOPRAMIDE INJ 10MG/2ML VIAL (J2765 PER 1) IV SCH (16:27)
[2021-10-12 18:13] LABS: BLOOD UREA NITROGEN 24 MG/DL (7-18); CALCIUM LEVEL 7.2 MG/DL (8.5-10.1); CARBON DIOXIDE LEVEL 17 MEQ/L (21-32); CHLORIDE LEVEL 114 MEQ/L (98-107); CREATININE FOR GFR 0.86 MG/DL (0.70-1.30); GLOMERULAR FILTRATION RATE > 60.0 (>60); GLUCOSE, FASTING 214 MG/DL (70-100); POTASSIUM SERUM 4.2 MEQ/L (3.5-5.1); SODIUM LEVEL 139 MEQ/L (136-145)
[2021-10-12] MEDS: PANTOPRAZOLE 40MG VIAL (C9113 PER 1) IV SCH (20:12)
[2021-10-12 22:26] LABS: BLOOD UREA NITROGEN 19 MG/DL (7-18); CARBON DIOXIDE LEVEL 20 MEQ/L (21-32); CHLORIDE LEVEL 116 MEQ/L (98-107); CREATININE FOR GFR 0.87 MG/DL (0.70-1.30); GLOMERULAR FILTRATION RATE > 60.0 (>60); GLUCOSE, FASTING 216 MG/DL (70-100); POTASSIUM SERUM 3.8 MEQ/L (3.5-5.1); SODIUM LEVEL 141 MEQ/L (136-145)
[2021-10-13] VITALS (16 sets, daily range): BP systolic 86–136; BP diastolic 53–69
[2021-10-13] MEDS: KETOROLAC 30 MG/ML 1ML VIAL IV PRN ×4 (00:54→18:49)
[2021-10-13] MEDS: INSULIN IV RATE CHANGE DOCUMENTATION ML/HR XX SCH ×4 (03:01→06:55)
[2021-10-13] MEDS: MORPHINE 4 MG/ML 1ML VIAL/SYRINGE (J2270) IV PRN ×6 (04:01→21:12)
[2021-10-13] MEDS: D5W/0.9% SODIUM CHLORIDE 1,000 ML IV SCH (04:02)
[2021-10-13 04:45] LABS: BASO % 0.1 % (0.0-1.0); EOS % 0.3 % (0.0-3.0); HEMATOCRIT 28.8 % (42.0-52.0); LYMPH # 1.7 10^3/uL (1.5-5.0); LYMPH % 15.1 % (24.0-44.0); MEAN CORPUSCULAR HEMOGLOBIN 30.3 pg (27.0-33.0); MEAN CORPUSCULAR VOLUME 89.2 fl (80.0-96.0); MONO # 0.9 10^3/uL (0.0-0.8); NEUTROPHILS # 8.6 10^3/uL (1.5-8.5); PLATELET COUNT, AUTOMATED 213 10^3/uL (150-450); RED BLOOD COUNT 3.23 10^6/uL (4.30-6.10); WHITE BLOOD COUNT 11.3 10^3/uL (4.0-10.0)
[2021-10-13 04:48] LABS: HEMOGLOBIN 9.8 g/dl (13.5-17.5)
[2021-10-13 05:18] LABS: ACETONE/KETONE 2.05 MG/DL (<2.81); BLOOD UREA NITROGEN 15 MG/DL (7-18); CALCIUM LEVEL 7.2 MG/DL (8.5-10.1); CARBON DIOXIDE LEVEL 18 MEQ/L (21-32); CHLORIDE LEVEL 116 MEQ/L (98-107); CREATININE FOR GFR 0.69 MG/DL (0.70-1.30); GLOMERULAR FILTRATION RATE > 60.0 (>60); GLUCOSE, FASTING 177 MG/DL (70-100); POTASSIUM SERUM 3.8 MEQ/L (3.5-5.1); SODIUM LEVEL 140 MEQ/L (136-145)
[2021-10-13] MEDS ORDERED: D5W/0.45% SODIUM CHLORIDE 1,000 ML IV SCH (06:50)
[2021-10-13] MEDS ORDERED: HumaLOG INSULIN (NovoLOG) PER UNIT SC SCH ×3 (07:30→21:00)
[2021-10-13] MEDS: METOCLOPRAMIDE INJ 10MG/2ML VIAL (J2765 PER 1) IV SCH ×3 (07:32→15:57)
[2021-10-13] MEDS ORDERED: GLUCAGON INJ 1MG VIAL SC PRN (07:50)
[2021-10-13] MEDS ORDERED: GLUCOSE 4GM CHEW TABLET PO PRN (07:50)
[2021-10-13] MEDS ORDERED: DEXTROSE 50% 50 ML SYRINGE IV PRN (07:50)
[2021-10-13] MEDS: LEVEMIR (INSULIN DETEMIR) 1 UNITS/0.01ML SC SCH ×2 (08:26→20:36)
[2021-10-13] MEDS: CLOPIDOGREL 75 MG TAB PO SCH (08:27)
[2021-10-13] MEDS: PANTOPRAZOLE 40MG VIAL (C9113 PER 1) IV SCH ×2 (08:28→20:36)
[2021-10-13 11:16] LABS: BLOOD UREA NITROGEN 12 MG/DL (7-18); CALCIUM LEVEL 7.8 MG/DL (8.5-10.1); CARBON DIOXIDE LEVEL 19 MEQ/L (21-32); CHLORIDE LEVEL 115 MEQ/L (98-107); CREATININE FOR GFR 0.71 MG/DL (0.70-1.30); GLOMERULAR FILTRATION RATE > 60.0 (>60); GLUCOSE, FASTING 232 MG/DL (70-100); POTASSIUM SERUM 3.4 MEQ/L (3.5-5.1); SODIUM LEVEL 140 MEQ/L (136-145)
[2021-10-13] MEDS: POTASSIUM CHLORIDE INJ 40 MEQ in NS 0.45% 1,000 ML IV SCH (16:29)
[2021-10-13] MEDS: HumaLOG INSULIN (NovoLOG) PER UNIT SC SCH ×2 (18:47→23:59)
[2021-10-13 18:49] LABS: BLOOD UREA NITROGEN 6 MG/DL (7-18); CALCIUM LEVEL 7.6 MG/DL (8.5-10.1); CARBON DIOXIDE LEVEL 22 MEQ/L (21-32); CHLORIDE LEVEL 113 MEQ/L (98-107); CREATININE FOR GFR 0.42 MG/DL (0.70-1.30); GLOMERULAR FILTRATION RATE > 60.0 (>60); GLUCOSE, FASTING 161 MG/DL (70-100); POTASSIUM SERUM 3.4 MEQ/L (3.5-5.1); SODIUM LEVEL 140 MEQ/L (136-145)
[2021-10-14] VITALS (7 sets, daily range): BP systolic 119–156; BP diastolic 53–77
[2021-10-14] MEDS: METOCLOPRAMIDE INJ 10MG/2ML VIAL (J2765 PER 1) IV SCH ×3 (00:04→16:23)
[2021-10-14] MEDS: MORPHINE 4 MG/ML 1ML VIAL/SYRINGE (J2270) IV PRN ×5 (01:10→22:15)
[2021-10-14] MEDS: POTASSIUM CHLORIDE INJ 40 MEQ in NS 0.45% 1,000 ML IV SCH ×3 (01:11→22:08)
[2021-10-14 04:42] LABS: BASO % 0.3 % (0.0-1.0); EOS # 0.1 10^3/uL (0.0-0.5); EOS % 0.6 % (0.0-3.0); HEMATOCRIT 27.7 % (42.0-52.0); HEMOGLOBIN 9.7 g/dl (13.5-17.5); LYMPH # 1.7 10^3/uL (1.5-5.0); LYMPH % 20.9 % (24.0-44.0); MEAN CORPUSCULAR HEMOGLOBIN 30.3 pg (27.0-33.0); MEAN CORPUSCULAR VOLUME 86.6 fl (80.0-96.0); MONO # 0.7 10^3/uL (0.0-0.8); MONO % 8.3 % (2.0-8.0); NEUTROPHILS # 5.5 10^3/uL (1.5-8.5); NEUTROPHILS % 69.5 % (36.0-66.0); PLATELET COUNT, AUTOMATED 202 10^3/uL (150-450); WHITE BLOOD COUNT 7.9 10^3/uL (4.0-10.0)
[2021-10-14 05:11] LABS: ACETONE/KETONE 8.74 MG/DL (<2.81); BLOOD UREA NITROGEN 3 MG/DL (7-18); CALCIUM LEVEL 7.4 MG/DL (8.5-10.1); CARBON DIOXIDE LEVEL 24 MEQ/L (21-32); CHLORIDE LEVEL 112 MEQ/L (98-107); CREATININE FOR GFR 0.38 MG/DL (0.70-1.30); GLOMERULAR FILTRATION RATE > 60.0 (>60); GLUCOSE, FASTING 75 MG/DL (70-100); POTASSIUM SERUM 3.2 MEQ/L (3.5-5.1); SODIUM LEVEL 140 MEQ/L (136-145)
[2021-10-14] MEDS: HumaLOG INSULIN (NovoLOG) PER UNIT SC SCH ×4 (06:00→21:00)
[2021-10-14] MEDS: PANTOPRAZOLE 40MG VIAL (C9113 PER 1) IV SCH ×2 (08:16→22:08)
[2021-10-14] MEDS: CLOPIDOGREL 75 MG TAB PO SCH (08:17)
[2021-10-14] MEDS: LEVEMIR (INSULIN DETEMIR) 1 UNITS/0.01ML SC SCH ×2 (08:17→22:09)
[2021-10-14] MEDS: KCL 10MEQ/100ML SWI (KRUN) 10 MEQ in IV 1 EA IV SCH ×2 (10:49→11:49)
[2021-10-14] MEDS: BACLOFEN 5MG PER 1/2 TABLET PO SCH ×2 (13:22→18:04)
[2021-10-14] MEDS: KETOROLAC 30 MG/ML 1ML VIAL IV PRN (17:21)
[2021-10-15] MEDS: BACLOFEN 5MG PER 1/2 TABLET PO SCH ×5 (00:36→23:23)
[2021-10-15] MEDS: METOCLOPRAMIDE INJ 10MG/2ML VIAL (J2765 PER 1) IV SCH ×2 (00:36→08:49)
[2021-10-15 06:00] VITALS: BP 114/70
[2021-10-15 06:19] LABS: BASO % 0.4 % (0.0-1.0); EOS # 0.2 10^3/uL (0.0-0.5); EOS % 2.6 % (0.0-3.0); HEMOGLOBIN 9.2 g/dl (13.5-17.5); LYMPH # 2.2 10^3/uL (1.5-5.0); LYMPH % 31.4 % (24.0-44.0); MEAN CORPUSCULAR HEMOGLOBIN 29.8 pg (27.0-33.0); MEAN CORPUSCULAR HGB CONC 34.1 g/dl (32.0-36.5); MEAN CORPUSCULAR VOLUME 87.4 fl (80.0-96.0); MONO # 0.7 10^3/uL (0.0-0.8); MONO % 9.4 % (2.0-8.0); NEUTROPHILS # 3.9 10^3/uL (1.5-8.5); NEUTROPHILS % 55.8 % (36.0-66.0); PLATELET COUNT, AUTOMATED 213 10^3/uL (150-450); RED BLOOD COUNT 3.09 10^6/uL (4.30-6.10)
[2021-10-15 06:39] LABS: BLOOD UREA NITROGEN 2 MG/DL (7-18); CALCIUM LEVEL 7.5 MG/DL (8.5-10.1); CARBON DIOXIDE LEVEL 26 MEQ/L (21-32); CHLORIDE LEVEL 107 MEQ/L (98-107); CREATININE FOR GFR 0.42 MG/DL (0.70-1.30); GLOMERULAR FILTRATION RATE > 60.0 (>60); GLUCOSE, FASTING 160 MG/DL (70-100); POTASSIUM SERUM 3.8 MEQ/L (3.5-5.1); SODIUM LEVEL 139 MEQ/L (136-145)
[2021-10-15] MEDS: HumaLOG INSULIN (NovoLOG) PER UNIT SC SCH ×4 (07:30→20:49)
[2021-10-15] MEDS: LEVEMIR (INSULIN DETEMIR) 1 UNITS/0.01ML SC SCH ×2 (08:49→20:48)
[2021-10-15] MEDS: PANTOPRAZOLE 40MG VIAL (C9113 PER 1) IV SCH ×2 (08:49→20:18)
[2021-10-15] MEDS: CLOPIDOGREL 75 MG TAB PO SCH (08:49)
[2021-10-15] MEDS: POTASSIUM CHLORIDE INJ 40 MEQ in NS 0.45% 1,000 ML IV SCH ×2 (10:18→22:33)
[2021-10-15] MEDS ORDERED: LIDOCAINE 2% 100MG/5ML SDV (FOR ANES.) As Ordered ONE ×2 (10:29→10:31)
[2021-10-15] MEDS ORDERED: propofoL 200 MG/20 ML VIAL As Ordered ONE ×2 (10:29→10:31)
[2021-10-15] MEDS ORDERED: fentaNYL 100 MCG/2 ML INJECTION As Ordered ONE (10:29)
[2021-10-15] MEDS ORDERED: MIDAZOLAM INJ 2MG/2ML VIAL (J2250 PER 1MG) As Ordered ONE (10:29)
[2021-10-15] MEDS ORDERED: SUCCINYLCHOLINE 100 MG/5 ML SYRINGE (J0330) As Ordered ONE (14:23)
[2021-10-15] MEDS ORDERED: ROCURONIUM BROMIDE 50 MG/5 ML VIAL As Ordered ONE (14:23)
[2021-10-15] MEDS ORDERED: ONDANSETRON 4MG/2ML VIAL As Ordered ONE (14:46)
[2021-10-15] MEDS ORDERED: dexameTHASONE 4 MG/ML 1ML VIAL (J1100 PER 1MG) As Ordered ONE (14:46)
[2021-10-15] MEDS ORDERED: PHENYLephrine 500MCG 5ML (100MCG/ML) SYRINGE As Ordered ONE (14:47)
[2021-10-15] MEDS ORDERED: ONDANSETRON 4MG/2ML VIAL IV PRN (15:25)
[2021-10-15] MEDS ORDERED: LR 1,000 ML IV SCH (15:25)
[2021-10-15] MEDS ORDERED: NYSTATIN 500,000 U/5 ML SUSP UDC SS SCH (18:00)
[2021-10-15] MEDS ORDERED: FLUCONAZOLE 100 MG TAB PO ONE (19:15)
[2021-10-15] MEDS: SUCRALFATE 1 GM TAB PO SCH (20:19)
[2021-10-15 22:00] VITALS: BP 134/79
[2021-10-15] MEDS: CALCIUM CARBONATE 500 MG CHEW U/D PO PRN (23:23)
[2021-10-16] MEDS: BACLOFEN 5MG PER 1/2 TABLET PO SCH (05:47)
[2021-10-16] MEDS: POTASSIUM CHLORIDE INJ 40 MEQ in NS 0.45% 1,000 ML IV SCH ×2 (05:48→08:47)
[2021-10-16 06:00] VITALS: BP 126/72
[2021-10-16] MEDS: CALCIUM CARBONATE 500 MG CHEW U/D PO PRN (06:31)
[2021-10-16] MEDS: HumaLOG INSULIN (NovoLOG) PER UNIT SC SCH (08:25)
[2021-10-16] MEDS: PANTOPRAZOLE 40MG VIAL (C9113 PER 1) IV SCH (08:25)
[2021-10-16] MEDS: SUCRALFATE 1 GM TAB PO SCH (08:26)
[2021-10-16] MEDS: CLOPIDOGREL 75 MG TAB PO SCH (08:26)
[2021-10-16] MEDS ORDERED: SUCR1TA PO (08:48)
[2021-10-16] MEDS ORDERED: PANT40TA29 PO (08:48)
[2021-10-16] MEDS ORDERED: FLUC100T3 PO (08:48)
[2021-10-16] MEDS ORDERED: LEVEMIR (INSULIN DETEMIR) 1 UNITS/0.01ML SC SCH (09:00)
[2021-10-16] MEDS ORDERED: FLUCONAZOLE 100 MG TAB PO SCH (09:00)
[2021-10-16 09:05] LABS: BASO % 0.4 % (0.0-1.0); EOS # 0.1 10^3/uL (0.0-0.5); EOS % 1.1 % (0.0-3.0); HEMATOCRIT 29.8 % (42.0-52.0); HEMOGLOBIN 10.3 g/dl (13.5-17.5); LYMPH # 2.4 10^3/uL (1.5-5.0); LYMPH % 27.9 % (24.0-44.0); MEAN CORPUSCULAR HEMOGLOBIN 29.8 pg (27.0-33.0); MEAN CORPUSCULAR HGB CONC 34.6 g/dl (32.0-36.5); MEAN CORPUSCULAR VOLUME 86.1 fl (80.0-96.0); MONO # 0.7 10^3/uL (0.0-0.8); MONO % 8.6 % (2.0-8.0); NEUTROPHILS # 5.2 10^3/uL (1.5-8.5); NEUTROPHILS % 61.5 % (36.0-66.0); PLATELET COUNT, AUTOMATED 319 10^3/uL (150-450); RED BLOOD COUNT 3.46 10^6/uL (4.30-6.10); WHITE BLOOD COUNT 8.5 10^3/uL (4.0-10.0)
[2021-10-16 09:35] LABS: BLOOD UREA NITROGEN 6 MG/DL (7-18); CALCIUM LEVEL 8.9 MG/DL (8.5-10.1); CARBON DIOXIDE LEVEL 28 MEQ/L (21-32); CHLORIDE LEVEL 103 MEQ/L (98-107); CREATININE FOR GFR 0.58 MG/DL (0.70-1.30); GLOMERULAR FILTRATION RATE > 60.0 (>60); GLUCOSE, FASTING 208 MG/DL (70-100); POTASSIUM SERUM 4.4 MEQ/L (3.5-5.1); SODIUM LEVEL 137 MEQ/L (136-145)
== END 2021-10-16 10:55 | disposition home or self-care (01) | DRG 638 ==
LOC: M ED 23:04 → M ED INP 10-12 09:11 → ENRESERV 10-12 09:45 → M ICU 10-12 10:11 → M MS5PR 10-14 15:10
PROVIDERS: ADMIT Internal Medicine Nephrology; ATTEND Internal Medicine Nephrology
PROC: 0DB78ZX Excision of Stomach, Pylorus, Via Natural or Artificial Opening Endoscopic, Diagnostic (ICD-10-PCS; 2021-10-15)
PROC: 0DB48ZX Excision of Esophagogastric Junction, Via Natural or Artificial Opening Endoscopic, Diagnostic (ICD-10-PCS; 2021-10-15)
PROC: 0DB58ZX Excision of Esophagus, Via Natural or Artificial Opening Endoscopic, Diagnostic (ICD-10-PCS; principal; 2021-10-15 11:30)
DX: E11.10 Type 2 diabetes mellitus with ketoacidosis without coma (principal); B37.81 Candidal esophagitis; K29.50 Unspecified chronic gastritis without bleeding; I25.10 Atherosclerotic heart disease of native coronary artery without angina pectoris; Z95.5 Presence of coronary angioplasty implant and graft; I25.2 Old myocardial infarction; E78.5 Hyperlipidemia, unspecified; I10 Essential (primary) hypertension; Z20.822 Contact with and (suspected) exposure to COVID-19; Z79.4 Long term (current) use of insulin; Z79.899 Other long term (current) drug therapy; Z87.891 Personal history of nicotine dependence; R06.6 Hiccough; K44.9 Diaphragmatic hernia without obstruction or gangrene; R14.0 Abdominal distension (gaseous)

== ENCOUNTER → 2022-03-25 | Outpatient (CLI) | payer OTHER ==
[~2022-03-25] MED LIST changes: +FLUC100T3 PO; +FURO40TA2 PO; +PANT40TA29 PO; +SUCR1TA PO
== END ==
LOC: M RAD 10:59
PROVIDERS: ATTEND Family Medicine Addiction Medicine
DX: I73.9 Peripheral vascular disease, unspecified (principal)

== ENCOUNTER → 2022-04-23 | Outpatient (CLI) | payer OTHER ==
[~2022-04-23] MED LIST changes: -ALIR150P; +ALIR150P4
== END ==
LOC: M RAD 12:07
PROVIDERS: ATTEND Family Medicine Addiction Medicine
DX: R68.81 Early satiety (principal)
CPT/HCPCS: 78264; A9541

== ENCOUNTER → 2022-04-27 | Outpatient (CLI) | payer OTHER ==
[~2022-04-27] MED LIST changes: +GASTROGRAFIN SOLUTION 30ML (Q9963) As Ordered ONE; +ISOVUE-370 76% 100ML VIAL As Ordered ONE
== END ==
LOC: M RAD 12:43
PROVIDERS: ATTEND Physician Assistant
DX: R14.0 Abdominal distension (gaseous) (principal)
CPT/HCPCS: 74178; Q9963; Q9967

== ENCOUNTER 2022-07-24 20:41 | Emergency (ER) | payer OTHER ==
[~2022-07-24] VITALS: Ht 170.2 cm; Wt 84.0 kg
[2022-07-24 20:42] VITALS: BP 140/86
[2022-07-24 21:28] LABS: BASO # 0.1 10^3/uL (0.0-0.2); BASO % 0.8 % (0.0-1.0); EOS # 0.3 10^3/uL (0.0-0.5); EOS % 2.9 % (0.0-3.0); HEMATOCRIT 41.9 % (42.0-52.0); HEMOGLOBIN 14.2 g/dl (13.5-17.5); LYMPH # 2.7 10^3/uL (1.5-5.0); LYMPH % 25.7 % (24.0-44.0); MEAN CORPUSCULAR HGB CONC 33.9 g/dl (32.0-36.5); MEAN CORPUSCULAR VOLUME 85.7 fl (80.0-96.0); MONO # 0.6 10^3/uL (0.0-0.8); MONO % 5.8 % (2.0-8.0); NEUTROPHILS # 6.8 10^3/uL (1.5-8.5); NEUTROPHILS % 64.2 % (36.0-66.0); PLATELET COUNT, AUTOMATED 301 10^3/uL (150-450); RED BLOOD COUNT 4.89 10^6/uL (4.30-6.10); WHITE BLOOD COUNT 10.6 10^3/uL (4.0-10.0)
[2022-07-24 21:49] LABS: BLOOD UREA NITROGEN 17 MG/DL (9-23); CALCIUM LEVEL 8.8 MG/DL (8.5-10.1); CARBON DIOXIDE LEVEL 28 MMOL/L (20-31); CHLORIDE LEVEL 97 MMOL/L (98-107); CREATININE FOR GFR 0.69 MG/DL (0.70-1.30); GLOMERULAR FILTRATION RATE > 60.0 (>60); GLUCOSE, FASTING 441 MG/DL (60-100); POTASSIUM SERUM 4.3 MMOL/L (3.5-5.1); SODIUM LEVEL 133 MMOL/L (136-145)
== END 2022-07-25 02:27 | disposition left against medical advice (07) ==
LOC: M ED 20:41
DX: Z53.21 Procedure and treatment not carried out due to patient leaving prior to being seen by health care provider (principal)

== ENCOUNTER → 2022-07-24 | Outpatient (REF) | payer OTHER ==
[~2022-07-24] MED LIST changes: +CLOP75TA99 PO; -GASTROGRAFIN SOLUTION 30ML (Q9963) As Ordered ONE; -ISOVUE-370 76% 100ML VIAL As Ordered ONE; -PLAV1TAB2 PO
[2022-07-24 19:54] LABS: HEMOGLOBIN A1c > 14.0 % (4.0-6.0)
[2022-07-24 20:03] LABS: ALKALINE PHOSPHATASE 120 U/L (46-116); ALT/SGPT 20 U/L (7.0-40); AST/SGOT 12 U/L (<34); BILIRUBIN,TOTAL 0.3 MG/DL (0.3-1.2); BLOOD UREA NITROGEN 18 MG/DL (9-23); CALCIUM LEVEL 9.9 MG/DL (8.5-10.1); CARBON DIOXIDE LEVEL 28 MMOL/L (20-31); CHLORIDE LEVEL 96 MMOL/L (98-107); CREATININE FOR GFR 0.74 MG/DL (0.70-1.30); GLOMERULAR FILTRATION RATE > 60.0 (>60); GLUCOSE, FASTING 341 MG/DL (60-100); POTASSIUM SERUM 6.2 MMOL/L (3.5-5.1); SODIUM LEVEL 133 MMOL/L (136-145); THYROID STIMULATING HORMONE 1.683 uIU/ML (0.55-4.78); TOTAL PROTEIN 8.3 G/DL (5.7-8.2)
== END ==
LOC: M LAB REF 17:16
PROVIDERS: ATTEND Family Medicine Addiction Medicine
DX: E11.9 Type 2 diabetes mellitus without complications (principal)

== ENCOUNTER → 2022-08-04 | Outpatient (CLI) | payer OTHER ==
[2022-08-04 13:50] LABS: BASO # 0.1 10^3/uL (0.0-0.2); BASO % 0.8 % (0.0-1.0); EOS # 0.2 10^3/uL (0.0-0.5); EOS % 2.5 % (0.0-3.0); HEMATOCRIT 47.5 % (42.0-52.0); HEMOGLOBIN 15.6 g/dl (13.5-17.5); LYMPH # 2.3 10^3/uL (1.5-5.0); LYMPH % 24.6 % (24.0-44.0); MEAN CORPUSCULAR HEMOGLOBIN 28.8 pg (27.0-33.0); MEAN CORPUSCULAR HGB CONC 32.8 g/dl (32.0-36.5); MEAN CORPUSCULAR VOLUME 87.6 fl (80.0-96.0); MONO # 0.5 10^3/uL (0.0-0.8); MONO % 5.7 % (2.0-8.0); NEUTROPHILS # 6.1 10^3/uL (1.5-8.5); NEUTROPHILS % 65.9 % (36.0-66.0); PLATELET COUNT, AUTOMATED 415 10^3/uL (150-450); RED BLOOD COUNT 5.42 10^6/uL (4.30-6.10); WHITE BLOOD COUNT 9.2 10^3/uL (4.0-10.0)
[2022-08-04 13:54] LABS: ALBUMIN 4.2 G/DL (3.2-5.2); ALKALINE PHOSPHATASE 112 U/L (46-116); ALT/SGPT 20 U/L (7.0-40); AST/SGOT 15 U/L (<34); BILIRUBIN,TOTAL 0.5 MG/DL (0.3-1.2); BLOOD UREA NITROGEN 19 MG/DL (9-23); CALCIUM LEVEL 9.6 MG/DL (8.5-10.1); CARBON DIOXIDE LEVEL 29 MMOL/L (20-31); CHLORIDE LEVEL 99 MMOL/L (98-107); CHOLESTEROL LEVEL 311 MG/DL (<200); CPK CREATINE PHOSPHOKINASE 165 U/L (46-171); CREATININE FOR GFR 0.74 MG/DL (0.70-1.30); GLOMERULAR FILTRATION RATE > 60.0 (>60); GLUCOSE, FASTING 298 MG/DL (60-100); LDL CHOLESTEROL 229.6 MG/DL (<100); NON-HDL-C 274 MG/DL; POTASSIUM SERUM 5.3 MMOL/L (3.5-5.1); SODIUM LEVEL 136 MMOL/L (136-145); TRIGLYCERIDES LEVEL 222 MG/DL (<150)
[2022-08-04 14:54] LABS: HEMOGLOBIN A1c > 14.0 % (4.0-6.0)
== END ==
LOC: M PLALAB 10:32
PROVIDERS: ATTEND Physician Assistant Medical
DX: Z12.5 Encounter for screening for malignant neoplasm of prostate (principal); E11.59 Type 2 diabetes mellitus with other circulatory complications; E78.2 Mixed hyperlipidemia; I10 Essential (primary) hypertension; I25.10 Atherosclerotic heart disease of native coronary artery without angina pectoris
CPT/HCPCS: 36415; 80053; 80061; 82550; 83036; 85025; G0103

== ENCOUNTER → 2022-12-30 | Outpatient (CLI) | payer OTHER, SELFPAY | LOC: M RAD 10:41 | PROVIDERS: ATTEND Surgery | DX: I73.9 Peripheral vascular disease, unspecified (principal) ==

== ENCOUNTER → 2023-01-13 | Outpatient (CLI) | payer OTHER ==
[2023-01-13 14:48] LABS: BASO # 0.1 10^3/uL (0.0-0.2); BASO % 0.7 % (0.0-1.0); EOS # 0.1 10^3/uL (0.0-0.5); EOS % 1.5 % (0.0-3.0); HEMATOCRIT 48.6 % (42.0-52.0); HEMOGLOBIN 16.1 g/dl (13.5-17.5); LYMPH # 2.2 10^3/uL (1.5-5.0); LYMPH % 23.8 % (24.0-44.0); MEAN CORPUSCULAR HEMOGLOBIN 29.1 pg (27.0-33.0); MEAN CORPUSCULAR HGB CONC 33.1 g/dl (32.0-36.5); MEAN CORPUSCULAR VOLUME 87.9 fl (80.0-96.0); MONO # 0.5 10^3/uL (0.0-0.8); MONO % 5.6 % (2.0-8.0); NEUTROPHILS # 6.2 10^3/uL (1.5-8.5); PLATELET COUNT, AUTOMATED 335 10^3/uL (150-450); RED BLOOD COUNT 5.53 10^6/uL (4.30-6.10); WHITE BLOOD COUNT 9.1 10^3/uL (4.0-10.0)
[2023-01-13 15:10] LABS: ALBUMIN 4.4 G/DL (3.2-5.2); ALKALINE PHOSPHATASE 118 U/L (46-116); ALT/SGPT 20 U/L (7.0-40); AST/SGOT 15 U/L (<34); BILIRUBIN,TOTAL 0.6 MG/DL (0.3-1.2); BLOOD UREA NITROGEN 20 MG/DL (9-23); CALCIUM LEVEL 9.3 MG/DL (8.5-10.1); CARBON DIOXIDE LEVEL 27 MMOL/L (20-31); CHLORIDE LEVEL 98 MMOL/L (98-107); CHOLESTEROL LEVEL 219 MG/DL (<200); CHOLESTEROL RISK RATIO 5.65 (<5); CPK CREATINE PHOSPHOKINASE 145 U/L (46-171); CREATININE FOR GFR 0.86 MG/DL (0.70-1.30); GLOMERULAR FILTRATION RATE > 60.0 (>60); GLUCOSE, FASTING 380 MG/DL (60-100); HDL CHOLESTEROL 38.7 MG/DL (>40); LDL CHOLESTEROL 152.1 MG/DL (<100); NON-HDL-C 180.3 MG/DL; POTASSIUM SERUM 5.8 MMOL/L (3.5-5.1); SODIUM LEVEL 134 MMOL/L (136-145); TOTAL PROTEIN 8.4 G/DL (5.7-8.2); TRIGLYCERIDES LEVEL 141 MG/DL (<150)
[2023-01-13 15:27] LABS: HEMOGLOBIN A1c 13.8 % (4.0-6.0)
== END ==
LOC: M PLALAB 10:44
PROVIDERS: ATTEND Physician Assistant Medical
DX: E11.59 Type 2 diabetes mellitus with other circulatory complications (principal)

== ENCOUNTER → 2023-01-14 | Outpatient (REF) | payer OTHER | LOC: M SFHCPLAZ 16:31 | PROVIDERS: ATTEND Physician Assistant Medical | DX: Z53.9 Procedure and treatment not carried out, unspecified reason (principal) ==

== ENCOUNTER → 2023-01-27 | Outpatient (CLI) | payer OTHER ==
[2023-01-27 14:47] LABS: HEMOGLOBIN A1c 13.2 % (4.0-6.0)
[2023-01-27 14:59] LABS: BLOOD UREA NITROGEN 17 MG/DL (9-23); CALCIUM LEVEL 9.1 MG/DL (8.5-10.1); CARBON DIOXIDE LEVEL 29 MMOL/L (20-31); CHLORIDE LEVEL 104 MMOL/L (98-107); CREATININE FOR GFR 0.77 MG/DL (0.70-1.30); GLOMERULAR FILTRATION RATE > 60.0 (>60); GLUCOSE, FASTING 85 MG/DL (60-100); POTASSIUM SERUM 5.3 MMOL/L (3.5-5.1); SODIUM LEVEL 139 MMOL/L (136-145)
== END ==
LOC: M PLALAB 11:15
PROVIDERS: ATTEND Physician Assistant Medical
DX: E87.5 Hyperkalemia (principal); E11.59 Type 2 diabetes mellitus with other circulatory complications

== ENCOUNTER → 2023-02-24 | Outpatient (CLI) | payer OTHER ==
[2023-02-24 16:26] LABS: HEMOGLOBIN A1c 11.9 % (4.0-6.0)
== END ==
LOC: M PLALAB 12:08
PROVIDERS: ATTEND Physician Assistant Medical
DX: E11.59 Type 2 diabetes mellitus with other circulatory complications (principal)

== ENCOUNTER → 2023-05-28 | Outpatient (CLI) | payer OTHER ==
[2023-05-28 13:34] LABS: HEMOGLOBIN A1c 12.6 % (4.0-6.0)
[2023-05-28 13:51] LABS: ALKALINE PHOSPHATASE 110 U/L (46-116); ALT/SGPT 38 U/L (7.0-40); AST/SGOT 20 U/L (<34); BILIRUBIN,TOTAL 0.6 MG/DL (0.3-1.2); BLOOD UREA NITROGEN 15 MG/DL (9-23); CALCIUM LEVEL 9.4 MG/DL (8.5-10.1); CARBON DIOXIDE LEVEL 29 MMOL/L (20-31); CHLORIDE LEVEL 102 MMOL/L (98-107); CHOLESTEROL LEVEL 195 MG/DL (<200); CHOLESTEROL RISK RATIO 4.72 (<5); CREATININE FOR GFR 0.75 MG/DL (0.70-1.30); GLOMERULAR FILTRATION RATE > 60.0 (>60); GLUCOSE, FASTING 360 MG/DL (60-100); HDL CHOLESTEROL 41.3 MG/DL (>40); LDL CHOLESTEROL 131.5 MG/DL (<100); NON-HDL-C 153.7 MG/DL; SODIUM LEVEL 138 MMOL/L (136-145); TOTAL PROTEIN 7.7 G/DL (5.7-8.2); TRIGLYCERIDES LEVEL 111 MG/DL (<150)
== END ==
LOC: M PLALAB 10:35
PROVIDERS: ATTEND Physician Assistant Medical
DX: E11.59 Type 2 diabetes mellitus with other circulatory complications (principal)

== ENCOUNTER → 2023-11-18 | Outpatient (CLI) | payer MEDICARE, OTHER | LOC: M PLAIMG 10:34 | PROVIDERS: ATTEND Physician Assistant Medical | DX: S69.91XA Unspecified injury of right wrist, hand and finger(s), initial encounter (principal); X58.XXXA Exposure to other specified factors, initial encounter; Y92.9 Unspecified place or not applicable; Y93.9 Activity, unspecified; Y99.9 Unspecified external cause status ==

== ENCOUNTER → 2024-03-31 | Outpatient (REF) | payer OTHER, BC | LOC: M LAB REF 16:00 | PROVIDERS: ATTEND Physician Assistant | DX: B34.9 Viral infection, unspecified (principal) ==

== ENCOUNTER 2025-03-06 10:20 | Emergency (ER) | payer BC, OTHER ==
[~2025-03-06] VITALS: Ht 170.2 cm; Wt 81.8 kg
[~2025-03-06 10:20] MED LIST changes: +GABA-1172 PO; -GABA-282 PO
[2025-03-06 10:24] VITALS: BP 142/80; TEMP 99.5; O2SAT 98
[2025-03-06] MEDS ORDERED: AMOX500C PO (10:50)
== END 2025-03-06 11:08 | disposition home or self-care (01) ==
LOC: M ED 10:20
DX: J02.0 Streptococcal pharyngitis (principal); Z79.899 Other long term (current) drug therapy; Z79.891 Long term (current) use of opiate analgesic; Z79.4 Long term (current) use of insulin

== ENCOUNTER 2025-04-02 19:46 | Emergency (ER) | payer OTHER ==
[~2025-04-02] VITALS: Ht 170.2 cm; Wt 87.1 kg
[~2025-04-02 19:46] MED LIST changes: +AMOX500C PO
[2025-04-02] MEDS ORDERED: AMOX875T2 PO (21:30)
[2025-04-02] MEDS: AUGMENTIN 875 MG TAB PO ONE (21:30)
[2025-04-02] MEDS: KETOROLAC 30 MG/ML 1 ML VIAL IM ONE (21:32)
[2025-04-02 21:38] VITALS: BP 159/89; TEMP 98.1; O2SAT 96
== END 2025-04-02 21:39 | disposition home or self-care (01) ==
LOC: M ED 19:46
DX: K08.89 Other specified disorders of teeth and supporting structures (principal); K03.81 Cracked tooth; I10 Essential (primary) hypertension; E11.9 Type 2 diabetes mellitus without complications; I25.2 Old myocardial infarction; Z86.79 Personal history of other diseases of the circulatory system; Z79.01 Long term (current) use of anticoagulants; Z79.2 Long term (current) use of antibiotics; Z79.899 Other long term (current) drug therapy; Z79.4 Long term (current) use of insulin; Z87.891 Personal history of nicotine dependence
CPT/HCPCS: 96372; 99283; J1885

== ENCOUNTER 2025-05-21 21:22 | Observation (INO) | payer OTHER ==
[~2025-05-21] VITALS: Ht 170.2 cm; Wt 79.6 kg
[~2025-05-21 21:22] MED LIST changes: +AMOX875T2 PO
[2025-05-21 22:02] LABS: BASO # 0.1 10^3/uL (0.0-0.2); BASO % 1.0 % (0.0-1.0); EOS # 0.3 10^3/uL (0.0-0.5); EOS % 2.9 % (0.0-3.0); LYMPH # 2.7 10^3/uL (1.5-5.0); LYMPH % 26.7 % (24.0-44.0); MONO # 0.7 10^3/uL (0.0-0.8); MONO % 6.7 % (2.0-8.0); NEUTROPHILS # 6.4 10^3/uL (1.5-8.5); NEUTROPHILS % 62.4 % (36.0-66.0); PLATELET COUNT, AUTOMATED 305 10^3/uL (150-450)
[2025-05-21 22:21] LABS: CK-MB VALUE MASS 4.1 NG/ML (<3.6)
[2025-05-21 22:23] LABS: CPK CREATINE PHOSPHOKINASE 336 U/L (46-171); MB/CK RELATIVE INDEX 1.22 (< OR =4)
[2025-05-21 22:24] LABS: ALT/SGPT 30 U/L (7.0-40); AST/SGOT 16 U/L (<34); CALCIUM LEVEL 8.9 MG/DL (8.5-10.1); CARBON DIOXIDE LEVEL 25 MMOL/L (20-31); CHLORIDE LEVEL 100 MMOL/L (98-107); CREATININE FOR GFR 0.92 MG/DL (0.70-1.30); GLOMERULAR FILTRATION RATE > 90.0 (>60); POTASSIUM SERUM 4.3 MMOL/L (3.5-5.1); SODIUM LEVEL 138 MMOL/L (136-145)
[2025-05-21 22:25] LABS: THYROXINE (T4) 7.4 UG/DL (4.5-10.9)
[2025-05-21] MEDS ORDERED: ISOVUE-370 76% 100 ML VIAL As Ordered ONE (23:02)
[2025-05-21] MEDS: FUROSEMIDE 40 MG/4 ML VIAL IV ONE (23:10)
[2025-05-21] MEDS: HumuLIN R (REGULAR) INSULIN (NovoLIN R) **100 U/ML** PER UNIT IV ONE (23:28)
[2025-05-21 23:40] LABS: CK-MB VALUE MASS 3.8 NG/ML (<3.6)
[2025-05-21 23:41] LABS: CPK CREATINE PHOSPHOKINASE 320.0 U/L (46-171); MB/CK RELATIVE INDEX 1.18 (< OR =4)
[2025-05-22 01:17] LABS: CK-MB VALUE MASS 3.4 NG/ML (<3.6)
[2025-05-22 01:18] LABS: CPK CREATINE PHOSPHOKINASE 321.0 U/L (46-171); MB/CK RELATIVE INDEX 1.05 (< OR =4)
[2025-05-22 05:11] LABS: ACETONE/KETONE 0.11 MMOL/L (0.02-0.27)
[2025-05-22] MEDS ORDERED: GLUCOSE 4 GM CHEW PO PRN (06:05)
[2025-05-22] MEDS ORDERED: DEXTROSE 50% 50 ML SYRINGE IV PRN (06:05)
[2025-05-22] MEDS ORDERED: GLUCAGON INJ 1 MG VIAL SC PRN (06:05)
[2025-05-22] MEDS ORDERED: ACETAMINOPHEN 325 MG TAB PO PRN (06:20)
[2025-05-22] MEDS: LanTUS (INSULIN GLARGINE INJ) 1 UNITS/0.01 ML SC SCH (07:21)
[2025-05-22 08:02] LABS: VENOUS BASE EXCESS 2.3 (-2.0-2.0); VENOUS HCO3 28.0 MMOL/L (23.0-27.0); VENOUS O2 SATURATION 97.6 % (60.0-80.0); VENOUS PARTIAL PRESSURE CO2 47.7 mmHg (38.0-50.0); VENOUS PARTIAL PRESSURE O2 100.4 mmHg (30.0-50.0); VENOUS PH 7.387 UNITS (7.330-7.430); VENOUS STANDARD HCO3 26.5 MMOL/L; VENOUS TOTAL CO2 29.5 MMOL/L (24.0-28.0)
[2025-05-22] MEDS: INSULIN LISPRO (NovoLOG) PER UNIT SC SCH ×2 (08:27→21:59)
[2025-05-22 08:37] LABS: CALCIUM LEVEL 8.7 MG/DL (8.5-10.1); CARBON DIOXIDE LEVEL 28 MMOL/L (20-31); CHLORIDE LEVEL 102 MMOL/L (98-107); CREATININE FOR GFR 0.69 MG/DL (0.70-1.30); GLOMERULAR FILTRATION RATE > 90.0 (>60); POTASSIUM SERUM 3.8 MMOL/L (3.5-5.1); SODIUM LEVEL 139 MMOL/L (136-145)
[2025-05-22 08:41] LABS: BASO # 0.1 10^3/uL (0.0-0.2); BASO % 0.4 % (0.0-1.0); EOS # 0.3 10^3/uL (0.0-0.5); EOS % 2.2 % (0.0-3.0); LYMPH # 1.9 10^3/uL (1.5-5.0); LYMPH % 17.0 % (24.0-44.0); MONO # 0.6 10^3/uL (0.0-0.8); MONO % 4.9 % (2.0-8.0); NEUTROPHILS # 8.4 10^3/uL (1.5-8.5); NEUTROPHILS % 75.1 % (36.0-66.0); PLATELET COUNT, AUTOMATED 271 10^3/uL (150-450)
[2025-05-22] MEDS ORDERED: ASPI81TA26 PO (08:41)
[2025-05-22] MEDS ORDERED: GABA-1490 PO (08:41)
[2025-05-22] MEDS ORDERED: METF-838 PO (08:41)
[2025-05-22] MEDS ORDERED: LANTINJ4 SC (08:41)
[2025-05-22] MEDS ORDERED: GLUC1AUT SQ (08:41)
[2025-05-22] MEDS ORDERED: HOME MED LIST COMPLETE! XX SCH (08:45)
[2025-05-22] MEDS: HEPARIN SOD 5000 UNITS/ML 1 ML VIAL/SYRINGE SC SCH (09:00)
[2025-05-22] MEDS: CLOPIDOGREL 75 MG TAB PO SCH (09:52)
[2025-05-22] MEDS: METOPROLOL SUCC. 25 MG *XL* TAB PO SCH (09:52)
[2025-05-22] MEDS: FUROSEMIDE 40 MG/4 ML VIAL IV SCH (09:52)
[2025-05-22 10:00] LABS: ESTIMATED AVERAGE GLUCOSE 321.0 MG/DL (60-110)
[2025-05-22] MEDS ORDERED: INSULIN LISPRO (NovoLOG) PER UNIT SC SCH (17:30)
[2025-05-22 20:26] VITALS: BP 120/73; TEMP 97.2; O2SAT 94
[2025-05-22 20:30] VITALS: O2SAT 95
[2025-05-23 04:10] VITALS: BP 119/73; TEMP 97.7; O2SAT 95
[2025-05-23 06:31] LABS: PLATELET COUNT, AUTOMATED 303 10^3/uL (150-450)
[2025-05-23 06:58] LABS: CALCIUM LEVEL 8.9 MG/DL (8.5-10.1); CARBON DIOXIDE LEVEL 27 MMOL/L (20-31); CHLORIDE LEVEL 101 MMOL/L (98-107); CREATININE FOR GFR 0.71 MG/DL (0.70-1.30); GLOMERULAR FILTRATION RATE > 90.0 (>60); MAGNESIUM LEVEL 2.0 MG/DL (1.8-2.4); POTASSIUM SERUM 4.1 MMOL/L (3.5-5.1); SODIUM LEVEL 140 MMOL/L (136-145)
[2025-05-23] MEDS: INSULIN LISPRO (NovoLOG) PER UNIT SC SCH ×2 (08:10)
[2025-05-23] MEDS: LanTUS (INSULIN GLARGINE INJ) 1 UNITS/0.01 ML SC SCH (08:11)
[2025-05-23] MEDS: DAPAGLIFLOZIN PROPANEDIOL 10 MG TABLET PO SCH (09:25)
[2025-05-23] MEDS: SPIRONOLACTONE 25 MG TAB PO SCH (09:26)
[2025-05-23 09:41] LABS: APPEARANCE, URINE CLEAR (CLEAR); BACTERIA, URINE AUTO NEGATIVE (NEGATIVE); BILIRUBIN, URINE AUTO NEGATIVE (NEGATIVE); BLOOD, URINE BLOOD NEGATIVE (NEGATIVE); GLUCOSE, URINE (UA) AUTO 3+ mg/dL (NEGATIVE); KETONE, URINE AUTO NEGATIVE (NEGATIVE); LEUKOCYTE ESTERASE, URINE AUTO NEGATIVE (NEGATIVE); MUCUS, URINE SMALL (NEGATIVE); NITRITE, URINE AUTO NEGATIVE (NEGATIVE); PROTEIN, URINE AUTO NEGATIVE (NEGATIVE); RBC, URINE AUTO 0 /HPF (0-3); SPECIFIC GRAVITY URINE AUTO 1.020 (1.002-1.035); SQUAMOUS EPITHELIAL CELL UR AU 0 /HPF (0-6); UROBILINOGEN, URINE AUTO 0.2 mg/dL (0.0-2.0); WBC, URINE AUTO 1 /HPF (0-3)
[2025-05-23] MEDS: TORSEMIDE 20 MG TAB PO SCH (17:02)
[2025-05-23 21:19] VITALS: BP 114/72; TEMP 97.3; O2SAT 97
[2025-05-24 03:52] VITALS: BP 136/78; TEMP 98.1; O2SAT 98
[2025-05-24 06:01] LABS: PLATELET COUNT, AUTOMATED 314 10^3/uL (150-450)
[2025-05-24 06:25] LABS: CALCIUM LEVEL 8.7 MG/DL (8.5-10.1); CARBON DIOXIDE LEVEL 30 MMOL/L (20-31); CHLORIDE LEVEL 102 MMOL/L (98-107); CREATININE FOR GFR 0.92 MG/DL (0.70-1.30); GLOMERULAR FILTRATION RATE > 90.0 (>60); MAGNESIUM LEVEL 2.3 MG/DL (1.8-2.4); POTASSIUM SERUM 3.7 MMOL/L (3.5-5.1); SODIUM LEVEL 143 MMOL/L (136-145)
[2025-05-24] MEDS ORDERED: ALDA25TA2 PO (12:15)
[2025-05-24] MEDS ORDERED: FARX1TAB3 PO (12:15)
[2025-05-24] MEDS ORDERED: LANTINJ4 SC (12:15)
[2025-05-24] MEDS ORDERED: HUMA100I5 SC (12:22)
[2025-05-24] MEDS ORDERED: METF-838 PO (15:08)
[2025-05-24 17:22] VITALS: BP 132/77
[2025-05-28 14:48] LABS: ALDOSTERONE 9.0 ng/dL (see note)
[2025-05-29 22:02] LABS: RENIN LEVEL 3.45 ng/mL/h (0.25-5.82)
== END 2025-05-24 17:24 | disposition home or self-care (01) ==
LOC: M ED 21:22 → M ED INP 05-22 06:17 → INTOOBSV 05-22 06:17 → M MSPAV 05-22 20:15
PROVIDERS: ADMIT Student in an Organized Health Care Education/Training Program; ATTEND Internal Medicine Nephrology
DX: I11.0 Hypertensive heart disease with heart failure (principal); I25.10 Atherosclerotic heart disease of native coronary artery without angina pectoris; Z95.5 Presence of coronary angioplasty implant and graft; I25.2 Old myocardial infarction; Z95.828 Presence of other vascular implants and grafts; E22.9 Hyperfunction of pituitary gland, unspecified; E78.5 Hyperlipidemia, unspecified; Z87.891 Personal history of nicotine dependence; I50.41 Acute combined systolic (congestive) and diastolic (congestive) heart failure; J81.0 Acute pulmonary edema; Z79.2 Long term (current) use of antibiotics; Z79.4 Long term (current) use of insulin; Z79.899 Other long term (current) drug therapy; I25.5 Ischemic cardiomyopathy; I50.810 Right heart failure, unspecified
CPT/HCPCS: 36415; 71046; 71275; 80048; 80076; 81001; 82010; 82088; 82550; 82553; 82803; 83036; 83605; 83735; 83880; 84145; 84244; 84436; 84443; 84484; 85025; 85027; 87486; 87581; 87633; 87641; 87798; 93005; 93041; 93306; 94760; 96374; 99285; J1815; J1938; Q9967